=== PATIENT | male | born 1960 | race Caucasian/White ===

== ENCOUNTER 2018-12-13 07:32 | Emergency (ER) | payer MEDICARE, OTHER ==
[~2018-12-13] VITALS: Ht 180.3 cm; Wt 67.1 kg
[~2018-12-13 07:32] MED LIST: ALBU90OI INH; AZIT250 PO; CODGUAEL PO; CYCL10 PO; DOXY100 PO; HYDACE5 PO; IBUP200 PO; IBUP800 PO
[2018-12-13 08:35] LABS: BASOPHILS ABSOLUTE AUTO 0.03 K/mm3 (0.00-0.23); BASOPHILS PERCENT AUTO 0 % (0-2); EOSINOPHILS ABSOLUTE AUTO 0.06 K/mm3 (0.00-0.68); EOSINOPHILS PERCENT AUTO 0 % (0-6); Hematocrit 40.4 % (37.0-53.0); Hemoglobin 13.2 g/dL (13.5-17.5); IMMATURE GRAN ABSOLUTE AUTO 0.07 K/mm3 (0.00-0.10); IMMATURE GRAN PERCENT AUTO 1 % (0-1); LYMPHOCYTES ABSOLUTE AUTO 2.43 K/mm3 (0.84-5.20); LYMPHOCYTES PERCENT AUTO 17 % (21-46); MONOCYTES ABSOLUTE AUTO 0.94 K/mm3 (0.16-1.47); MONOCYTES PERCENT AUTO 6 % (4-13); Mean Corpuscular HGB 33.3 pg (26.0-34.0); Mean Corpuscular HGB Conc 32.7 g/dL (31.5-36.5); Mean Corpuscular Volume 102 fL (80-100); Mean Platelet Volume 10.3 fL (9.1-12.4); NEUTROPHILS ABSOLUTE AUTO 11.09 K/mm3 (1.96-9.15); NEUTROPHILS PERCENT AUTO 76 % (41-73); Platelet Count 288 K/mm3 (150-400); RDW Coefficient Variation 13.8 % (11.7-14.2); RDW Standard Deviation 50.6 fL (35.1-46.3); Red Blood Cell Count 3.96 M/mm3 (4.30-5.90); White Blood Cell Count 14.62 K/mm3 (4.00-11.30)
[2018-12-13 09:05] LABS: Alanine Aminotransfer (ALT/SGP 78 U/L (12-78); Albumin, Blood 3.3 g/dL (3.4-5.0); Albumin/Globulin Ratio 0.9 (0.8-1.8); Alk Phos 124 U/L (50-136); Anion Gap 10 mmol/L (6-16); Aspartate Aminotrans (AST/SGOT 49 U/L (12-37); Bilirubin, Total 0.7 mg/dL (0.1-1.0); Blood Urea Nitrogen 21 mg/dL (8-24); Bun/Creatinine Ratio 24.2 (12.0-20.0); CO2, Blood 23 mmol/L (21-32); Calcium, Blood 8.6 mg/dL (8.5-10.1); Chloride, Blood 107 mmol/L (98-108); Creatinine, Blood 0.87 mg/dL (0.60-1.20); Globulin, Blood 3.7 g/dL (2.2-4.0); Glomerular Filtration Rate >60 (60-); Glucose, Blood 128 mg/dL (70-99); Potassium, Blood 4.1 mmol/L (3.5-5.5); Sodium, Blood 140 mmol/L (136-145)
[2018-12-13 09:29] LABS: Base Excess Venous -3.1 mmol/L; Bicarbonate Venous 20.2 mmol/L (24.0-30.0); PCO2 Venous 52.7 mmHg (38-42); PO2 Venous 30.6 mmHg (38-42)
[2018-12-13 09:30] LABS: pH Blood Venous 7.27 (7.34-7.37)
[2018-12-13] MEDS ORDERED: PRED20 PO (10:33)
[2018-12-13] MEDS ORDERED: Lasix20 MG PO (10:34)
== END 2018-12-13 10:39 | disposition home or self-care (01) ==
LOC: ER 07:32
PROVIDERS: Emergency Medicine
DX: J44.1 Chronic obstructive pulmonary disease with (acute) exacerbation (principal); R09.02 Hypoxemia; I50.9 Heart failure, unspecified; Z79.899 Other long term (current) drug therapy; Z87.891 Personal history of nicotine dependence
CPT/HCPCS: 36415; 71046; 80053; 82803; 83880; 85025; 93005; 93010; 94640; 96361; 96365; 96375; 99284-25; J1940; J2930; J3475; J7030

== ENCOUNTER → 2019-01-02 | Outpatient (CLI) | payer MEDICARE, OTHER ==
[~2019-01-02] MED LIST changes: +Lasix20 MG PO; +PRED20 PO
[2019-01-02 19:47] LABS: Alanine Aminotransfer (ALT/SGP 20 U/L (12-78); Albumin, Blood 2.8 g/dL (3.4-5.0); Albumin/Globulin Ratio 0.6 (0.8-1.8); Alk Phos 103 U/L (50-136); Anion Gap 8 mmol/L (6-16); Aspartate Aminotrans (AST/SGOT 18 U/L (12-37); Bilirubin, Total 0.4 mg/dL (0.1-1.0); Blood Urea Nitrogen 18 mg/dL (8-24); Bun/Creatinine Ratio 18.5 (12.0-20.0); CO2, Blood 25 mmol/L (21-32); Calcium, Blood 8.6 mg/dL (8.5-10.1); Chloride, Blood 105 mmol/L (98-108); Creatinine, Blood 0.97 mg/dL (0.60-1.20); Globulin, Blood 4.5 g/dL (2.2-4.0); Glomerular Filtration Rate >60 (60-); Glucose, Blood 136 mg/dL (70-99); Sodium, Blood 138 mmol/L (136-145); Total Protein, Blood 7.3 g/dL (6.4-8.2)
== END | disposition home or self-care (01) ==
LOC: LAB 19:19 → LAB SHORT 19:19
PROVIDERS: Nurse Practitioner Family
DX: I50.9 Heart failure, unspecified (principal)
CPT/HCPCS: 80053; 83880

== ENCOUNTER 2019-02-17 08:37 | Inpatient (IN) | payer MEDICARE, OTHER ==
[~2019-02-17] VITALS: Ht 180.3 cm; Wt 71.1 kg
[2019-02-17 09:28] LABS: BASOPHILS ABSOLUTE AUTO 0.05 K/mm3 (0.00-0.23); BASOPHILS PERCENT AUTO 0 % (0-2); EOSINOPHILS ABSOLUTE AUTO 0.06 K/mm3 (0.00-0.68); EOSINOPHILS PERCENT AUTO 1 % (0-6); Hematocrit 47.3 % (37.0-53.0); Hemoglobin 15.7 g/dL (13.5-17.5); IMMATURE GRAN ABSOLUTE AUTO 0.03 K/mm3 (0.00-0.10); IMMATURE GRAN PERCENT AUTO 0 % (0-1); LYMPHOCYTES PERCENT AUTO 26 % (21-46); MONOCYTES ABSOLUTE AUTO 0.89 K/mm3 (0.16-1.47); MONOCYTES PERCENT AUTO 8 % (4-13); Mean Corpuscular HGB 32.1 pg (26.0-34.0); Mean Corpuscular HGB Conc 33.2 g/dL (31.5-36.5); Mean Corpuscular Volume 97 fL (80-100); NEUTROPHILS ABSOLUTE AUTO 7.55 K/mm3 (1.96-9.15); NEUTROPHILS PERCENT AUTO 65 % (41-73); Platelet Count 245 K/mm3 (150-400); RDW Coefficient Variation 15.1 % (11.7-14.2); RDW Standard Deviation 53.1 fL (35.1-46.3); Red Blood Cell Count 4.89 M/mm3 (4.30-5.90); White Blood Cell Count 11.58 K/mm3 (4.00-11.30)
[2019-02-17 09:53] LABS: Alanine Aminotransfer (ALT/SGP 94 U/L (12-78); Albumin, Blood 3.4 g/dL (3.4-5.0); Albumin/Globulin Ratio 0.7 (0.8-1.8); Alk Phos 150 U/L (50-136); Anion Gap 9 mmol/L (6-16); Aspartate Aminotrans (AST/SGOT 102 U/L (12-37); Bilirubin, Total 1.5 mg/dL (0.1-1.0); Blood Urea Nitrogen 19 mg/dL (8-24); Bun/Creatinine Ratio 19.3 (12.0-20.0); CO2, Blood 28 mmol/L (21-32); Chloride, Blood 95 mmol/L (98-108); Creatinine, Blood 0.99 mg/dL (0.60-1.20); Globulin, Blood 5.1 g/dL (2.2-4.0); Glomerular Filtration Rate >60 (60-); Glucose, Blood 122 mg/dL (70-99); Potassium, Blood 4.4 mmol/L (3.5-5.5); Sodium, Blood 132 mmol/L (136-145); Total Protein, Blood 8.5 g/dL (6.4-8.2); Troponin I 0.081 ng/mL (0.000-0.040)
[2019-02-17] MEDS ORDERED: ACET325 PO (11:28)
[2019-02-17] MEDS ORDERED: IBUPROFEN200 MG PO (11:30)
[2019-02-17] MEDS ORDERED: ALBU2.5V5 NEB (11:30)
[2019-02-17] MEDS ORDERED: ALBU90OI INH (11:31)
--- NOTE | 2019-02-17 11:57 | NUR ---
pt arrived to pcu 5 via gurney from the ED. report was obtained, pt able to stand and transfer to bed indep, but does get sob with exertion, a/ox3, pleasant and cooperative with care, follows commands well, denies any acute pain at this time, he replies nothing new, lungs are dim t/o, tight, a bit course in bases, resp even with mild laboring, sats are 99% on the 4 liters, turned him down to 2 for now, is on continuous biox, has a harsh occ productive cough, hrr, tele in place running sr per monitor, see strip, no edema noted, ppp+2, cap refill <3sec, vs stable, afebrile, iv site to trina is clear and patent, s.l. at this time, btx4, abd flat soft nontender, voids without diff, had a bm, skin c/w/d, has a scratch where his dog scratched him on his left fa. shara, up ad kerry in roomyousif, oriented to room layout and call system, call light in reach, echo being done at this time.
[2019-02-17 13:12] LABS: U Amphetamine Screen DETECTED; U Barbituate Screen Not Detected; U Benzodiazapine Screen Not Detected; U Buprenorphine Screen Not Detected; U Cannabinoids Screen Not Detected; U Cocaine Screen Not Detected; U Methadone Screen Not Detected; U Methamphetamine Screen Not Detected; U Opiates Screen Not Detected; U Oxycodone Screen Not Detected; U Phencyclidine Screen Not Detected; U Propoxyphene Screen Not Detected
[2019-02-17 17:13] LABS: PCO2 Arterial 34.6 mmHg (35-45); PO2 Arterial 95.1 mmHg (80-100); pH Blood Arterial 7.47 (7.35-7.45)
--- NOTE | 2019-02-17 18:16 | NUR ---
PT BECOMING MORE AGITATED, STATES HE HAS BEEN LIKE THIS FOR THREE DAYS, AND THINKS HE IS ALLERGIC TO ONE OF THE MEDICATIONS HE WAS STARTED ON THREE DAYS AGO, THESE NEW MEDS WERE NOT GIVEN HERE, CALL TO DR. SEXTON, RECIEVED NEW ORDERES, GAVE HIM ATIVAN, HE CALMED DOWN, AND IS DOZING. TELLS THIS NURSE THAT HE DRINKS BEER ALL DAY LONG WITH A TOTAL OF 1-3 32 OZ BEERS AT THE END OF THE DAY. SHE DIDN'T THINK HE WAS TAKING ANYTHING NOT ON HIS MEDICATION LIST,BUT WORKS NIGHTS AND DOESN'T KNOW WHEN SHE IS AT WORK. HE IS RESTING QUIETLY AT THIS TIME. CALL LIGHT IN REACH.
--- NOTE | 2019-02-17 19:49 | NUR ---
PM NOTE. ASSUMED CARE OF PT APROX 1900, PT IS A&Ox4 BUT SLEEPY DUE TO RECENT ATIVAN. PT WAS ADMITTED FOR COPD AND BRONCHITIS. PT IS CURRENTLY ON 1L NC AT 94%. TELE INTACT, NSR IN THE 90'S PER UNLOAD ASSOCIATE, PT'S BP 120/90. PT HAS NO EDEMA NOTED ON ASSESSMENT. L/S TIGHT AND DIM WITH COARSENESS IN THE BASES. BT PRESENT AND HYPOACTIVE ABD IS SOFT AND NONTENDER TO PALP. CALL LIGHT IN REACH, BED ALARM IS ON DUE TO MOMENTS OF CONFUSION PER REPORT FROM DAY VERNON AMEZQUITA. WILL CONTINUE TO MONITOR.
[2019-02-18 00:56] LABS: Adenovirus Not Detected (NOT DETECT); Bordetella pertussis Not Detected (NOT DETECT); Chlamydophila pneumoniae Not Detected (NOT DETECT); Coronavirus 229E Not Detected (NOT DETECT); Coronavirus HKU1 Not Detected (NOT DETECT); Coronavirus NL63 Not Detected (NOT DETECT); Coronavirus OC43 Not Detected (NOT DETECT); Human Metapneumovirus Not Detected (NOT DETECT); Human Rhinovirus/Enterovirus Not Detected (NOT DETECT); Influenza A Not Detected (NOT DETECT); Influenza A/2009-H1 Not Detected (NOT DETECT); Influenza A/H1 Not Detected (NOT DETECT); Influenza A/H3 Not Detected (NOT DETECT); Influenza B Not Detected (NOT DETECT); Mycoplasma pneumoniae Not Detected (NOT DETECT); Parainfluenza Virus 1 Not Detected (NOT DETECT); Parainfluenza Virus 2 Not Detected (NOT DETECT); Parainfluenza Virus 3 Not Detected (NOT DETECT); Parainfluenza Virus 4 Not Detected (NOT DETECT); Respiratory Syncytial Virus Not Detected (NOT DETECT)
[2019-02-18 01:32] LABS: BASOPHILS ABSOLUTE AUTO 0.06 K/mm3 (0.00-0.23); BASOPHILS PERCENT AUTO 0 % (0-2); EOSINOPHILS ABSOLUTE AUTO 0.05 K/mm3 (0.00-0.68); EOSINOPHILS PERCENT AUTO 0 % (0-6); Hematocrit 46.1 % (37.0-53.0); Hemoglobin 15.1 g/dL (13.5-17.5); IMMATURE GRAN ABSOLUTE AUTO 0.06 K/mm3 (0.00-0.10); IMMATURE GRAN PERCENT AUTO 0 % (0-1); LYMPHOCYTES PERCENT AUTO 28 % (21-46); MONOCYTES ABSOLUTE AUTO 1.27 K/mm3 (0.16-1.47); MONOCYTES PERCENT AUTO 9 % (4-13); Mean Corpuscular HGB 32.5 pg (26.0-34.0); Mean Corpuscular HGB Conc 32.8 g/dL (31.5-36.5); Mean Corpuscular Volume 99 fL (80-100); Mean Platelet Volume 11.2 fL (9.1-12.4); NEUTROPHILS ABSOLUTE AUTO 8.79 K/mm3 (1.96-9.15); NEUTROPHILS PERCENT AUTO 62 % (41-73); NRBC ABSOLUTE 0.02 K/mm3 (0.00-0.02); NRBC Auto 0.1 /100 WBC (0.0-0.2); Platelet Count 250 K/mm3 (150-400); RDW Coefficient Variation 15.3 % (11.7-14.2); RDW Standard Deviation 54.5 fL (35.1-46.3); Red Blood Cell Count 4.65 M/mm3 (4.30-5.90); White Blood Cell Count 14.13 K/mm3 (4.00-11.30)
[2019-02-18 01:48] LABS: PCO2 Arterial 23.8 mmHg (35-45); PO2 Arterial 138 mmHg (80-100); pH Blood Arterial 7.48 (7.35-7.45)
[2019-02-18 01:50] LABS: Albumin/Globulin Ratio 0.6 (0.8-1.8); Bilirubin, Total 1.3 mg/dL (0.1-1.0); Calcium, Blood 8.7 mg/dL (8.5-10.1); Creatinine, Blood 1.48 mg/dL (0.60-1.20); Globulin, Blood 4.7 g/dL (2.2-4.0); Potassium, Blood 4.9 mmol/L (3.5-5.5); Total Protein, Blood 7.7 g/dL (6.4-8.2)
--- NOTE | 2019-02-18 02:50 | NUR ---
PT UPDATE... AT 0010 PT FELL AFTER ATEMPTING TO WALK TO THE BATHROOM WITH OUT HELP. PT DID NOT USE HIS CALL LIGHT, BED ALARM WAS ON AT THE TIME. (SEE POST FALL DOCUMENTATION.) PT DID NOT HIT HIS HEAD. VS WERE STABLE POST FALL. PT WAS SHOWING INCREASED CONFUSION SINCE BEGINING SHIFT ASSESSMENT. PT WAS MAKING STATEMENTS LIKE "SEE THE [employer]ORSES, JUST THERE UP THE ROAD." PT'S SPEECH ALSO WOULD BECOME SLURRED/GARBALED AT TIMES. PT WAS ATTEMPTING TO VOID SEVERAL TIMES WITH NO RESULTS. BLADDER SCAN WAS DONE AND IT SHOWED >200MLS. MOTTLING WAS NOTED TO THE PT'S BLE THAT WAS NOT NOTED DURING FIRST ASSESSMENT. A PROPER O2 SAT WAS NOT OBTAINED DUE TO PT'S EXTREMITIES BEING MOTTLED AND COLD TO TOUCH. PT REFUSED WARM BLANKETS. MOTTLING INCREASED FROM THE PT'S BILATERAL FEET UP TO HIS KNEES THEN TO HIS THIGHS. MOTTLING WAS ALSO NOTED TO THE PT'S BUE AT THIS TIME. PROVIDER WAS CALLED AND NOTIFED, ORDERS TO TRANSFER TO ICU WERE OBTAINED. PT'S BELONGINGS WERE TAKEN WITH PT. PT'S FAMILY WAS NOTIFIED OF THE TRANSFER. REPORT WAS CALLED TO BARREL LINE OPERATOR TAKING PT.
--- NOTE | 2019-02-18 02:50 | NUR ---
PATIENT TRANSFERED TO ICU MD CONNOLLY TO ROOM TO ASSESS PATIENT. PATIENT TRANSFERED TO ICU 10.
[2019-02-18 03:16] LABS: Source, Urine Clean Catch
[2019-02-18 03:18] LABS: Bilirubin, Urine Neg (Neg); Blood, Urine 3+ (Neg); Glucose Qualitative, Urine Neg (Neg); Ketones, Urine Neg (Neg); Leukocyte Esterase, Urine Neg (Neg); Nitrite, Urine Neg (Neg); Protein, Urine 2+ (Neg); Urobilinogen, Urine 2+ (Normal)
--- NOTE | 2019-02-18 03:30 | NUR ---
RECEIVED PT AT 0253 FROM PCU. PT SLIDE TRANSFERRED TO BED. REPORT WAS RECEIVED FROM ALIRIO ORTIZ. ASSUMED CARE. PT NOTED TO BE SOMNULENT WHEN ARRIVING TO ROOM. PT AWAKENS AND IS QUITE CONFUSED. TRYING TO GET OUT OF BED. NEEDS TO BE REMINDED THAT HE HAS A CATHETER IN PLACE. ATTEMPTS TO PULL CATHETER OUT EVEN WHEN WARNED OF HARM HE COULD CAUSE. IS NOT AWARE OF WHERE HE IS. AGGRESSIVELY TRIES TO CLIMB OVER RAILINGS. BEBE VEST RESTRAINT APPLIED AND ALSO NEEDED TO PLACE SOFT WRIST RESTRAINTS TO KEEP PT FROM HARMING HIMSELF. NOTED TO BE VERY IMPULSIVE. TEACHING DONE WITH PT ON RATIONALE FOR RESTRAINTS AND FOR COMING TO ICU. PT DOES NOT DEMONSTRATE ANY COMPREHENSION TO TEACHING. WILL CONTINUE TO MONITOR PT, AND WILL REVIEW CHART.
[2019-02-18 03:31] LABS: Appearance, Urine Clear (Clear); Color, Urine Yellow (P-Yellow); U Amphetamine Screen Not Detected; U Barbituate Screen Not Detected; U Benzodiazapine Screen DETECTED; U Buprenorphine Screen Not Detected; U Cannabinoids Screen Not Detected; U Cocaine Screen Not Detected; U Methadone Screen Not Detected; U Methamphetamine Screen Not Detected; U Opiates Screen Not Detected; U Oxycodone Screen Not Detected; U Phencyclidine Screen Not Detected; U Propoxyphene Screen Not Detected
[2019-02-18 03:32] LABS: Amorphous Light (0-Heavy); Bacteria Not Seen /hpf; Red Blood Cells, Urine 0-2 /hpf (0-2); Squamous Epithelial Cells Not Seen /hpf (Few); White Blood Cells, Urine Not Seen /hpf (0-5)
--- NOTE | 2019-02-18 05:11 | NUR ---
PT MEDICATED AGAIN WITH ATIVAN 1 MG FOR INCREASING AGITATION AND PULLING EXCESSIVELY HARD AT RESTRAINTS. ALSO TRYING TO GET AHOLD OF HIS CATHETER. PT DOES FALL ASLEEP, AND THEN AWAKENS TO RETURN TO TRYING TO GET OUT OF BED AND PULL AT RESTRAINTS AND LINES. PT CONTINUES ON 3 L/M O2 WITH SATURATION OF 100 PERCENT. DID DECREASE FLOW TO 2 L/M PER NASAL CANNULA. HAVE NEEDED TO DO SPOT CHECKS OF SATURATIONS SECONDARY TO PT NOT HOLDING STILL ENOUGH TO HAVE ACCURATE SATURATION READINGS. HAS OCCASSION SOMEWHAT MOIST COUGH WITHOUT BEING ABLE TO EXPECTORATE. WILL CONTINUE TO MONITOR.
--- NOTE | 2019-02-18 06:30 | NUR ---
HAVE CALLED DR CONNOLLY CONCERNING PT'S WORSENING CIWA SCORING. ORDERS RECEIVED TO INCREASE ATIVAN DOSAGE AND FREQUENCY. HAVE ADMINISTERED 2 MG ATIVAN. PT CONTINUES TO BE INCREASINGLY MORE RESTLESS AND AGITATED. PULLS AGGRESSIVELY AGAINST RESTRATINS. WILL CONTINUE TO MONITOR PT. WILL REPORT OFF TO ONCOMING RN. PT'S CALLS THIS AM, UPDATE GIVEN. PT'S STATES THAT PT DRINKS 1-2 "HURRICANES" IN MORNING AND 2-3 AT NIGHT ON A DAILY BASIS. SHE ALSO CLAIMS THAT PT HAS HAD HALLUCINATIONS AND CONFUSION BEFORE WHEN HE RECEIVED LASIX AND CLEARED UP WHEN IT WAS STOPPED. SHE SAYS THAT BECAUSE PT HAD A DOSE OF LASIX YESTERDAY, THAT IS WHY HE IS CONFUSED AND AGITATED.
--- NOTE | 2019-02-18 17:48 | NUR ---
SHIFT SUMMARY: NO ACUTE DISTRESS NOTED T/O THE DAY. PT WAS PLACED ON PRECEDIX THIS MORNING D/T EXTREAM AGITATION AND PULLING ON RESTRAINTS. AFTER PT WAS ON PRECEDIX FOR A FEW HOURS ALL RESTRAINTS HAD BEEN REMOVED EXCEPT THE VEST. FAMILY AND WERE HEAR IN THE MORNING ASKING NUMEROUS QUESTIONS REGUARDING PT CONDITION. FAMILY UPDATED AND EDUCATED ON PT CURRENT CONDITION. WAS VERY INSISTANT THAT THE PT IS NOT GOING THROUGH ETOH WITHDRAWALS. THIS RN EDUCATED ON THE S/S ETOH WITHDRAWALS AND WENT THROUGH PT LABS AND MEDICATIONS WITH HER IN ATEMPTS TO ASSIST HER IN UNDERSTANDING CURRENT PLAN OF CARE IS APPROPRIATE. VSS T/O THE DAY. PT HAS BEEN SLEEPING AND QUIET MOST OF THE DAY SINCE PRECEDIX WAS STARTED. CIWA HAS BEEN BETWEEN APPROX BETWEEN 9-20 WITH AN AVERAGE OF 14 WHEN MEDICATED. WILL CONTINUE TO MONITOR AND REPORT TO NOC RN.
--- NOTE | 2019-02-18 20:28 | NUR ---
ASSUMED CARE OF PT AT 1900. REPORT RECEIVED AT BEDSIDE. PRECEDEX DRIP REVIEWED AND VERIFIED WITH OFFGOING RN. PT'S IN ROOM. ASKS QUESTIONS AND TEACHING OF PLAN OF CARE REVIEWED WITH . PT NOTED TO HAVE A SLEEP-APNEIC TYPE RESPIRATORY PATTERN. STATES PT HAS HAD TWO AT HOME SLEEP STUDIES WHICH WERE NOT DEFINITIVE FOR SLEEP APNEA. SHE STATES THAT PT WOULD ONLY SLEEP FOR A VERY SHORT PERIOD.
--- NOTE | 2019-02-19 | NUR ---
PT CONTINUES ON PRECEDEX AT 0.4 MCG'S/KG/HOUR. FOR THE MOST PART, PT IS ABLE TO REST. PT'S HAS GONE HOME FOR THE NIGHT. OF NOTE: WHEN PT AWAKENS, HE BECOMES VERY AGITATED, AND TRIES TO GET OUT OF BED. PULLS ON CATHETER, AND TRIES TO TAKE HIS LINES, BLOOD PRESSURE CUFF, AND OXYGEN OFF. HAVE MEDICATED PT WITH 2 MG ATIVAN WITH GOOD RESULTS. PT CURRENTLY RESTING IN BED. BLOOD PRESSURES HAVE BEEN SOMEWHAT HYPOTENSIVE WITH SEDATION.
--- NOTE | 2019-02-19 02:53 | NUR ---
HAVE DECREASED PRECEDEX TO 0.3MCG'S PER KG/HR. PT HAD BEEN MEDICATED AGAIN WITH 2 MG ATIVAN FOR AWAKENING AND BECOMING AGITATED WHEREAS HE WAS TRYING TO GET OUT OF BED. PT STATED HE WAS IN [place] AND WAS NOT AWARE HE WAS IN A HOSPITAL. PT SLEEPING AT THIS TIME. BLOOD PRESSURES TREND LOWER AFTER ATIVAN DOSING SO HAVE BROUGHT PRECEDEX DOWN TO 0.3 TO SEE IF THIS HELPS WITH HIS BLOOD PRESSURES.
[2019-02-19 04:12] LABS: BASOPHILS ABSOLUTE AUTO 0.02 K/mm3 (0.00-0.23); BASOPHILS PERCENT AUTO 0 % (0-2); EOSINOPHILS PERCENT AUTO 0 % (0-6); Hematocrit 43.3 % (37.0-53.0); Hemoglobin 14.9 g/dL (13.5-17.5); IMMATURE GRAN ABSOLUTE AUTO 0.06 K/mm3 (0.00-0.10); IMMATURE GRAN PERCENT AUTO 1 % (0-1); LYMPHOCYTES PERCENT AUTO 12 % (21-46); MONOCYTES ABSOLUTE AUTO 0.22 K/mm3 (0.16-1.47); MONOCYTES PERCENT AUTO 2 % (4-13); Mean Corpuscular HGB 32.8 pg (26.0-34.0); Mean Corpuscular HGB Conc 34.4 g/dL (31.5-36.5); NEUTROPHILS ABSOLUTE AUTO 10.99 K/mm3 (1.96-9.15); NEUTROPHILS PERCENT AUTO 86 % (41-73); Platelet Count 246 K/mm3 (150-400); RDW Coefficient Variation 14.8 % (11.7-14.2); RDW Standard Deviation 50.8 fL (35.1-46.3); Red Blood Cell Count 4.54 M/mm3 (4.30-5.90); White Blood Cell Count 12.79 K/mm3 (4.00-11.30)
[2019-02-19 04:14] LABS: Mean Corpuscular Volume 95 fL (80-100)
[2019-02-19 04:33] LABS: Alanine Aminotransfer (ALT/SGP 90 U/L (12-78); Albumin, Blood 2.1 g/dL (3.4-5.0); Albumin/Globulin Ratio 0.6 (0.8-1.8); Alk Phos 111 U/L (50-136); Anion Gap 10 mmol/L (6-16); Aspartate Aminotrans (AST/SGOT 88 U/L (12-37); Bilirubin, Total 0.9 mg/dL (0.1-1.0); Blood Urea Nitrogen 30 mg/dL (8-24); Bun/Creatinine Ratio 26.8 (12.0-20.0); CO2, Blood 25 mmol/L (21-32); Calcium, Blood 7.6 mg/dL (8.5-10.1); Chloride, Blood 99 mmol/L (98-108); Creatinine, Blood 1.12 mg/dL (0.60-1.20); Globulin, Blood 3.8 g/dL (2.2-4.0); Glomerular Filtration Rate >60 (60-); Glucose, Blood 167 mg/dL (70-99); Magnesium, Blood 2.1 mg/dL (1.6-2.4); Phosphorus, Blood 4.4 mg/dL (2.5-4.9); Potassium, Blood 4.2 mmol/L (3.5-5.5); Sodium, Blood 134 mmol/L (136-145); Total Protein, Blood 5.9 g/dL (6.4-8.2)
--- NOTE | 2019-02-19 04:54 | NUR ---
HAVE MEDICATED PT WITH 1 MG ATIVAN FOR INCREASING AGITATION. HAVE CHOSE TO DO 1 MG VERSUS 2MG TO SEE IF PT RESPONDS TO DECREASED DOSING. PT AT THIS POINT IS SLEEPING. SEE CIWA SCORING DETAILS FOR ASSESSMENT.
--- NOTE | 2019-02-19 06:40 | NUR ---
PT'S CALLS THIS AM TO CHECK ON PT. UPDATE GIVEN. PT HAS JUST AWOKE AND IS PULLING OFF HIS OXYGEN AND BLOOD PRESSURE CUFF. WILL EVALUATE NEED FOR ADDITIONAL DOSE OF ATIVAN OR IF PT IS REDIRECTABLE. PT HAS CONTINUED ON 3 MCG'S/KG/HOUR PRECEDEX. PT HAS SLEPT OFF AND ON THROUGH THE NIGHT. WILL CONTINUE TO MONITOR PT, AND WILL REPORT OFF TO ONCOMING RN.
--- NOTE | 2019-02-19 07:07 | NUR ---
ASSUMED CARE: RECEIVED REPORT FROM NOC RN. UPON ENTERING THE ROOM PT APPEARS TO BE SLEEPING NOTED BY HIS EYES CLOSED, EVEN CHEST RISE AND FALL NOTED. PRECEDEX IS NOTED TO BE AT 0.3 MCG/KG/HR. VSS AT THIS TIME, NO ACUTE DISTRESS NOTED. WILL CONTINUE TO MONITOR AND ASSESS FURTHER.
--- NOTE | 2019-02-19 09:04 | NUR ---
CALM AND COOPERATIVE: PT AWAKES WHILE IN THE ROOM ASSESSING HIM. APPEARS CONFUSED TO WHERE HE IS, BUT STATES [place] FOR THE STATE. STATES 1919 FOR THE YEAR AND FEBRUARY FOR THE MONTH. PT APPEARS DROUSY, BUT IS FOLLOWING COMMANDS AND IS ATTEMPTING TO GET OUT OF BED OF YET. PT IS EDUCATED TO BEING IN THE HOSPITAL AND STATES HE IS ONLY GOING TO BE HERE ONE MORE DAY. PT BEGINS TO START PULLING AT BLOOD PRESSURE CUFF BUT IS REDIRECTED. RN LEAVES ROOM TO GET WATER AND PT AGRESS NOT TO BE PULLING AT LINES AND CORDS OR GET OUT OF BED, UPON RETURNING PT HAD NOT ATTEMPTED ANY OF THE ABOVE. PT IS ABLE TO SIP ON WATER WITH NO S/S OF ASPIRATION, LIBRIUM GIVEN PO. AFTER EATING A YOGURT AND DRINKING A SMALL WATER PT FALLS BACK TO SLEEP. WILL CONTINUE TO MONITOR AND ASSESS FURTHER. PT IS ABLE TO PARTICIPATE IN CIWA TO GET A MORE ACCURATE SCORE.
--- NOTE | 2019-02-19 13:30 | NUR ---
DAUGHTER AT BEDSIDE: PT IS NOTED TO BE AWAKE, DAUGHTER IS IN ROOM AT THIS TIME. CURRENTLY PT IS CALM AND COOPERATIVE, IS ABLE TO STATE HOSPITAL WHICH HIS DAUGHTER TOLD HIM. PROVIDED A FOOD TRAY WHICH HE REFUSED, BUT REQUESTED CEREAL AND ICECREAM. PT ATE THE CEREAL WITH MILK, ICE CREAM AND FRUIT THAT WAS LEFT IN THE ROOM. PT APPEARS TO BE DROUSY AND REQUESTS TO LAY BACK AFTER HE IS FINISHED EATING AND APPEARS TO GO BACK TO SLEEP. WILL CONTINUE TO MONITOR.
--- NOTE | 2019-02-19 14:46 | NUR ---
PRECEDEX OFF: TITRATED PRECEDEX OFF AT THIS TIME TO SEE HOW PT TOLLERATES. PT HAS APPEARED TO SLEEP T/O THE DAY WITH BEBE VEST ON WAKING OCCATIONALY. PT HAS BEEN CALM AND COOPERATIVE WHEN AWAKE. WILL CONTINUE TO MONITOR AND ASSESS FOR NEED OF VEST AND PRECEDEX.
--- NOTE | 2019-02-19 18:13 | NUR ---
SHIFT SUMMARY: NO ACUTE CHANGES NOTED T/O THE SHIFT. PT REMAINED CALM AND COOPERATIVE T/O THE SHIFT, BUT REMAINED CONFUSED NEEDING TO BE REORIENTED TO PLACE AND SITUATION. PT WILL REPEAT BACK THE THINGS YOU SAY SO IT CAN BE DIFFICULT TO DETERMINE CONFUSION STATUS. PT STATED [employer] P[employer] THE PLACE AND 1919 THE YEAR AND [place]VANO THE PRESEDENT. PT HAS BEEN SITTING UP EATING AND DRINKING WITH OUT DIFFICULTY. VSS T/O THE DAY. PRECEDEX WAS TURNED OFF AT APPROX 1430 AND PT HAS BEEN SLEEPING OR AWAKE FOR SHORT PERIODS OF TIME. WILL CONTINUE TO MONITOR AND REPORT TO NOC RN. IS IN THE ROOM AND CALL LIGHT AT BEDSIDE.
--- NOTE | 2019-02-19 19:47 | NUR ---
ASSUMED CARE RECEIVED REPORT FROM CANDICE; PT IS CALM AND ALERT&ORIENTEDX2 (PERSON AND PLACE; STATED THE PRESIDENT WAS DEVI INITIALLY). PT IS ON 2LNC. CURRENT GTTP: BANNANA BAG 75ML/HR, AND NS TKO. BRAN HANGING TO GRAVITY. JUST LEFT BEDSIDE.
--- NOTE | 2019-02-19 21:44 | NUR ---
UPDATE PT AWAKE (ASLEEP SINCE 1930); CIWA OF 4. NO APPARENT DISTRESS; NO COMPLAINTS.
[2019-02-20 04:09] LABS: BASOPHILS ABSOLUTE AUTO 0.03 K/mm3 (0.00-0.23); BASOPHILS PERCENT AUTO 0 % (0-2); EOSINOPHILS PERCENT AUTO 0 % (0-6); Hematocrit 40.3 % (37.0-53.0); Hemoglobin 13.7 g/dL (13.5-17.5); IMMATURE GRAN ABSOLUTE AUTO 0.15 K/mm3 (0.00-0.10); IMMATURE GRAN PERCENT AUTO 1 % (0-1); LYMPHOCYTES ABSOLUTE AUTO 1.45 K/mm3 (0.84-5.20); LYMPHOCYTES PERCENT AUTO 7 % (21-46); MONOCYTES ABSOLUTE AUTO 0.74 K/mm3 (0.16-1.47); MONOCYTES PERCENT AUTO 4 % (4-13); Mean Corpuscular HGB 33.2 pg (26.0-34.0); Mean Platelet Volume 10.7 fL (9.1-12.4); NEUTROPHILS ABSOLUTE AUTO 18.84 K/mm3 (1.96-9.15); NEUTROPHILS PERCENT AUTO 89 % (41-73); Platelet Count 249 K/mm3 (150-400); RDW Standard Deviation 53.1 fL (35.1-46.3); Red Blood Cell Count 4.13 M/mm3 (4.30-5.90); White Blood Cell Count 21.21 K/mm3 (4.00-11.30)
[2019-02-20 04:11] LABS: Mean Corpuscular Volume 98 fL (80-100)
[2019-02-20 04:28] LABS: Alanine Aminotransfer (ALT/SGP 90 U/L (12-78); Albumin, Blood 2.4 g/dL (3.4-5.0); Albumin/Globulin Ratio 0.6 (0.8-1.8); Alk Phos 106 U/L (50-136); Anion Gap 8 mmol/L (6-16); Aspartate Aminotrans (AST/SGOT 63 U/L (12-37); Bilirubin, Total 0.6 mg/dL (0.1-1.0); Blood Urea Nitrogen 30 mg/dL (8-24); Bun/Creatinine Ratio 25.6 (12.0-20.0); CO2, Blood 26 mmol/L (21-32); Chloride, Blood 101 mmol/L (98-108); Creatinine, Blood 1.17 mg/dL (0.60-1.20); Globulin, Blood 3.9 g/dL (2.2-4.0); Glomerular Filtration Rate >60 (60-); Glucose, Blood 143 mg/dL (70-99); Magnesium, Blood 2.3 mg/dL (1.6-2.4); Phosphorus, Blood 2.8 mg/dL (2.5-4.9); Potassium, Blood 4.6 mmol/L (3.5-5.5); Sodium, Blood 135 mmol/L (136-145); Total Protein, Blood 6.3 g/dL (6.4-8.2)
--- NOTE | 2019-02-20 06:47 | NUR ---
SHIFT SUMMARY PT SLEPT MAJORITY OF NIGHT; AND WHEN AWAKE WAS VERY SLEEPY AND STRUGGLED TO STAY AWAKE. CIWA AT START OF SHIFT WAS 4 (2142), 2 @ 0028, AND 6 @ 0456. HE IS ALERT AND ORIENTED TO SELF, , PLACE, BUT NOT TIME - STATED THE PRESIDENT WAS DEVI AT START OF SHIFT, AND JAJA SCHAEFER AT END OF SHIFT (THE RARE TIMES HE WAS AWAKE AND COMMUNICATING WITH ME). NO ATIVAN OR LIBRIUM INDICATED. HE IS ON 2L NC, BUT COULD PROBABLY BE WEANED OFF - I WILL WALK IN TO ROOM AND IT WILL NOT BE ON CORRECTLY AND HE WILL BE SAT'ING MID 90'S. CLEAR THROUGHOUT LUNGS AND DIMINISHED IN BASES. PT HAS BEEN HAVING SOFT, BUT STABLE BLOOD PRESSURES, SEE VS. HE IS IN NSR WITH A BBB, AND OCCASIONAL PVC'S. PT HAS NOT NEEDED RESTRAINTS OR PRECEDEX ALL SHIFT. NO VISITORS THROUGHOUT NIGHT, LEFT PT WITH CALL LIGHT IN REACH, BED LOW AND LOCKED.
--- NOTE | 2019-02-20 09:57 | NUR ---
AM NOTE. ASSUMED CARE OF PT APROX 0700, PT IS A&Ox3, PT WAS UNABLE TO STATE THE DATE, BUT KNEW HIS LOCATION, CITY, AND WHO THE PRESIDENT WAS. PT WAS ADMITTED FOR COPD/BROCHITIS AND BEGAN ETOH W/D. PT IS NO LONGER IN RESTRAINS, HE IS CALM AND COOPERATIVE, PT IS NOT TRYING TO GET OUT OF BED, PULL ON ANY LINES/TUBES AT THIS TIME. NO W/D SYMPTOMS NOTED AT THIS TIME. PT DENIES ANY N/V, SHAKES OR ANXIOUSNESS/AGITATION. MANPOWER DEVELOPMENT SPECIALIST IN THE ROOM THIS AM, STATED THAT HE WANTED THE PT TO FOLLOW UP OUTPATIENT AFTER HIS D/C. MONITORS INTACT, NSR IN THE 710'S, PT'S BP 97/66. NO EDEMA NOTED ON ASSESSMENT. L/S CLEAR T/O AND DIM IN THE BASES, PT IS ON RA AT 97% WITH 2 L NC PRN. RR IS 17, EVEN AND UNLABORED. BT PRESENT AND HYPOACITIVE, ABD IS SOFT AND NONTENDER TO PALP. PT ATE ALL OF HIS BREAKFAST IND. CALL LIGHT IN REACH, BED IS LOCKED AND LOW WILL CONTINUE TO MONITOR.
[2019-02-20 12:24] LABS: BASOPHILS ABSOLUTE AUTO 0.04 K/mm3 (0.00-0.23); BASOPHILS PERCENT AUTO 0 % (0-2); EOSINOPHILS PERCENT AUTO 0 % (0-6); Hematocrit 42.2 % (37.0-53.0); Hemoglobin 13.9 g/dL (13.5-17.5); IMMATURE GRAN ABSOLUTE AUTO 0.22 K/mm3 (0.00-0.10); IMMATURE GRAN PERCENT AUTO 1 % (0-1); LYMPHOCYTES ABSOLUTE AUTO 1.19 K/mm3 (0.84-5.20); LYMPHOCYTES PERCENT AUTO 5 % (21-46); MONOCYTES ABSOLUTE AUTO 0.92 K/mm3 (0.16-1.47); MONOCYTES PERCENT AUTO 4 % (4-13); Mean Corpuscular HGB 33.2 pg (26.0-34.0); Mean Corpuscular HGB Conc 32.9 g/dL (31.5-36.5); Mean Platelet Volume 10.8 fL (9.1-12.4); NEUTROPHILS ABSOLUTE AUTO 24.06 K/mm3 (1.96-9.15); NEUTROPHILS PERCENT AUTO 91 % (41-73); Platelet Count 251 K/mm3 (150-400); RDW Coefficient Variation 15.6 % (11.7-14.2); RDW Standard Deviation 55.8 fL (35.1-46.3); Red Blood Cell Count 4.19 M/mm3 (4.30-5.90); White Blood Cell Count 26.43 K/mm3 (4.00-11.30)
[2019-02-20 12:28] LABS: Mean Corpuscular Volume 101 fL (80-100)
[2019-02-20 13:33] LABS: Source, Urine Catheter
--- NOTE | 2019-02-20 13:40 | NUR ---
PT UPDATE... PROVIDER IN THE ROOM TO SPEAK TO PT AND . PROVIDER WAS CONCERED ABOUT THE PT'S INCREASED WBC COUNT. ORDERS TO D/C BRAN AND SEND UA OBTAINED. BRAN WAS D/C'D WNL AND SPECIMEN WAS SENT. PROVIDER ENTERED NEW ORDERS FOR IV ANTIBIOTICS. PT KEEPS ASKING TO GO HOME AND MAKING STATEMENTS LIKE "I AM JUST GOING TO WALK OUT OF HERE." AND "I AM FEELING JUST FINE, I DON'T NEED TO BE HERE ANY MORE." PT'S ANXIETY AND AGITATION LEVEL HAVE INCREASED FROM EARLIER TODAY, PT WAS MEDICATED PER EMAR/CWIA PROTOCOL. CALL LIGHT IN REACH, BED ALARM ON, WILL CONTINUE TO MONITOR.
[2019-02-20 14:14] LABS: Bilirubin, Urine Neg (Neg); Blood, Urine 1+ (Neg); Glucose Qualitative, Urine Neg (Neg); Ketones, Urine Neg (Neg); Leukocyte Esterase, Urine 2+ (Neg); Nitrite, Urine Neg (Neg); Protein, Urine 1+ (Neg); Specific Gravity, Urine 1.015 (1.003-1.022); Urobilinogen, Urine 1+ (Normal)
[2019-02-20 14:31] LABS: Appearance, Urine Clear (Clear); Color, Urine Yellow (P-Yellow)
[2019-02-20 14:32] LABS: Bacteria Few /hpf; Squamous Epithelial Cells Not Seen /hpf (Few)
--- NOTE | 2019-02-20 18:07 | NUR ---
SHIFT SUMMARY. PT HAS BEEN AGITATED OFF AND ON T/O THIS SHIFT DUE TO THE FACT HE CANNOT GO HOME RIGHT NOW. PT KEEPS STATING THAT "I AM JUST GOING TO LEAVE." PT IS NOT HAVING ANY SHAKES/TREMORS OR HALLUCINATIONS AT THIS TIME. PT HAS PULLED 1 IV THIS SHIFT AFTER STATING HE WAS GOING TO LEAVE. PT EXHIBITS GENERALIZED WEAKNESS FROM BEDREST. PT IS ABLE TO REPOSITION HIMSELF IN THE BED PRN. PT HAS VOIDED 350MLS AFTER BRAN WAS D/C'D. PT DENIES ANY BURNING OR PAIN DURING URINATION. CALL LIGHT IN REACH, BED IS LOCKED AND LOW WILL CONTINUE TO MONITOR UNTIL REPORT IS GIVEN TO ONCOMING RN.
--- NOTE | 2019-02-20 23:13 | NUR ---
CARE ASSUMPTION / UPDATE PT A&O TO SELF, SURROUNDINGS, & EVENT, UNABLE TO STATE DATE. PT RESTLESS IN BED, PULLING AT MONITOR LINES, IV, AND REMOVING GOWN. BILAT SWR IN PLACE AFTER REMOVING PIV AT CHANGE OF SHIFT. NEW IV STARTED W/ RESUMPTION OF IV MEDICATION. PT NOT FOLLOWING INSTRUCTIONS, CONTINUES TO MANUEVER OUT OF BSWR, PULLING AT AND REMOVING LINES. PRN ATIVAN GIVEN PER EMAR W/OUT PT RESPONSE. PRECEDEX RESTARTED PER ORDERS. VSS. WILL CONTINUE TO MONITOR AND PROVIDE CARE.
--- NOTE | 2019-02-21 01:33 | NUR ---
PT CONTINUES TO BE RESTLESS AND COMING OUT OF BSWR AND REMOVING LINES. PT PLACED IN NONVIOLENT BILAT TOUGH CUFFS. PRECEDEX GTT INFUSING PER EMAR.
[2019-02-21 03:43] LABS: BASOPHILS ABSOLUTE AUTO 0.03 K/mm3 (0.00-0.23); BASOPHILS PERCENT AUTO 0 % (0-2); EOSINOPHILS PERCENT AUTO 0 % (0-6); Hematocrit 42.2 % (37.0-53.0); Hemoglobin 13.5 g/dL (13.5-17.5); IMMATURE GRAN ABSOLUTE AUTO 0.17 K/mm3 (0.00-0.10); IMMATURE GRAN PERCENT AUTO 1 % (0-1); LYMPHOCYTES ABSOLUTE AUTO 1.13 K/mm3 (0.84-5.20); LYMPHOCYTES PERCENT AUTO 5 % (21-46); MONOCYTES ABSOLUTE AUTO 0.68 K/mm3 (0.16-1.47); MONOCYTES PERCENT AUTO 3 % (4-13); Mean Corpuscular HGB 33.1 pg (26.0-34.0); Mean Corpuscular Volume 103 fL (80-100); Mean Platelet Volume 10.9 fL (9.1-12.4); NEUTROPHILS ABSOLUTE AUTO 22.99 K/mm3 (1.96-9.15); NEUTROPHILS PERCENT AUTO 92 % (41-73); Platelet Count 235 K/mm3 (150-400); RDW Standard Deviation 58.7 fL (35.1-46.3); Red Blood Cell Count 4.08 M/mm3 (4.30-5.90)
[2019-02-21 04:00] LABS: Alanine Aminotransfer (ALT/SGP 96 U/L (12-78); Albumin, Blood 2.7 g/dL (3.4-5.0); Albumin/Globulin Ratio 0.6 (0.8-1.8); Alk Phos 120 U/L (50-136); Anion Gap 5 mmol/L (6-16); Aspartate Aminotrans (AST/SGOT 70 U/L (12-37); BAND PERCENT MAN 3 % (0-8); BASOPHILS PERCENT MAN 0 % (0-2); Bilirubin, Total 0.3 mg/dL (0.1-1.0); Blood Urea Nitrogen 30 mg/dL (8-24); CO2, Blood 29 mmol/L (21-32); Calcium, Blood 8.3 mg/dL (8.5-10.1); Chloride, Blood 103 mmol/L (98-108); Creatinine, Blood 1.25 mg/dL (0.60-1.20); EOSINOPHILS PERCENT MAN 0 % (0-6); Globulin, Blood 4.2 g/dL (2.2-4.0); Glomerular Filtration Rate >60 (60-); Glucose, Blood 153 mg/dL (70-99); LYMPHOCYTES ABSOLUTE MAN 0.75 K/mm3 (0.84-5.20); LYMPHOCYTES PERCENT MAN 3 % (21-46); MONOCYTES PERCENT MAN 2 % (4-13); Magnesium, Blood 2.4 mg/dL (1.6-2.4); NEUTROPHILS ABSOLUTE MAN 23.75 K/mm3 (1.96-9.15); Phosphorus, Blood 2.3 mg/dL (2.5-4.9); Potassium, Blood 4.6 mmol/L (3.5-5.5); SEG NEUTROPHILS PERCENT MAN 92 % (41-73); Sodium, Blood 137 mmol/L (136-145); TOTAL CELLS COUNTED 100; Total Protein, Blood 6.9 g/dL (6.4-8.2)
--- NOTE | 2019-02-21 06:28 | NUR ---
SHIFT SUMMARY PT A&O TO SELF, EVENT, AND LOCATION. PT UNAWARE OF DATE & TIME. PT PLEASANT & FORGETFUL, APOLOGIZING FOR REMOVING SBWR AND PULLING AT/REMOVING LINES. PT PLACED IN BILAT UPPER EXTREMETY NONVIOLENT TOUGH CUFFS D/T ABILITY TO CONTINUOUSLY REMOVE BSWR AND REMOVE LINES. PT/RESTRAINTS MANAGED AND CARED FOR T/O SHIFT. PT RESTLESS T/O MAJORITY OF SHIFT ON PRECEDEX GTT UNTIL PT BRADYCARDIC AND HYPOTENSIVE, GTT PLACED ON STANDBY, SEE VS. PT IN BED W/ BILAT UPPER EXT RESTRAINTS IN PLACE. CALL LIGHT IN REACH. BED ALARM ON. WILL CONTINUE TO MONITOR AND PROVIDE CARE UNTIL REPORT OFF TO DAY SHIFT RN.
--- NOTE | 2019-02-21 09:45 | NUR ---
PT IS RESTLESS AND MOVING ABOUT PULLING ON LINES AND RESTRAINTS. PT MOANING AND FEW WORDS UNDERSTOOD BUT HE IS ALSO UNABLE TO FULLY COOPERATE WITH RESPOND WITH HIS ENVIRONMENT. ISTRATE IN AND OBSERVED PT STATUS.
--- NOTE | 2019-02-21 11:53 | NUR ---
LACTIC ACID RESULTS OBTAINED, DR CALLED, NEW ORDERS AND FLUIDS STARTED AND RATE ADJUSTED TO 450ML PER ISTRATE DUE TO E.F. FINDINGS. PT REMIANS CALM/RESTLESS AND VS NOTED. PT REMAINS STABLE.
[2019-02-21 14:34] LABS: Vancomycin, Trough 16.7 ug/mL (5.0-10.0)
--- NOTE | 2019-02-21 16:14 | NUR ---
PT REMAINING RESTLESS AND RESTRAINED BUT MANNAGABLE. VS AND SATS NOTED.
--- NOTE | 2019-02-21 17:27 | NUR ---
PT HAS CONT PERIODS OF CALM WITH RESTLESSNESS AND NOT FOLLOWING COMMANDS BUT HAS NOT BECOME COMBATIVE EITHER. PT HAS HAD LESS APNIC PERIODS THIS AFTERNOON AND KNEE MOTTLING HAS IMPROVED SL BUT REMAINS VISABLE. BANANNA BAG IS AT 75ML AND NS AT TKO. ATTENDS REMAINS ON AND DRY.
--- NOTE | 2019-02-21 20:06 | NUR ---
ASSUMED CARE OF PT AT 1915. REPORT RECEIVED AT BEDSIDE. PT PRESENTS IN BED SOMEWHAT AGITATED. PULLING ON RESTRAINTS. PT NOTED TO HAVE MOTTLING ON HIS THIGHS AND DARK MOTTLING ON HIS KNEES BI LAT. DISCUSSING THIS WITH PT'S SHE STATES THAT PT HAS HAD ONGOING ISSUES WITH MOTTLING ON LEGS AT THIGHS EVEN BEFORE COMING TO THE HOSPITAL. HAS STATED THAT PT HAS AN ORAL ABSCESS AT LOWER LEFT MOLAR AREA THAT HAS FLAIRED UP AT TIMES. HAS BEEN TO DENTIST TO HAVE RESOLVED BUT HAS NOT BEEN ABLE TO COMPLETE SECONDARY TO FINANCIAL ISSUES. HAS GONE HOME FOR THE NIGHT. DR JOSEPH COMES BY UNIT TO REQUEST UPDATE ON PT'S CONDITION RELATED TO TODAY'S INTERVENTIONS. NO NEW ORDERS RECEIVED. PT ABLE ANSWER QUESTIONS THOUGH THE RELIABILITY OF RESPONSES ARE QUESTIONABLE. WILL REVIEW CHART AND PLAN OF CARE FOR THIS PT.
--- NOTE | 2019-02-21 23:00 | NUR ---
PT'S GOES HOME FOR THE NIGHT. SHE REQUESTS THAT PT GETS "SOMETHING TO HELP HIM SLEEP" SECONDARY TO NON-STOP MOVEMENTS AND PULLING AT RESTRAINTS, GETTING HIS HIPS MOVED OVER TOWARDS HIS HANDS TO PULL OF ATTENDS, AND GETTING LEGS OVER RAILINGS, ADMINISTERED 2 MG ATIVAN IV. THIS DOES LITTLE TO RELIEVE AGITATION/ANXIOUSNESS OF PT. SECONDARY TO PT BEING ABLE TO MANIPULATE HIS SOFT WRIST RESTRAINTS TO GET HIS HANDS FREE, CONTINUING TO USE TAT WRIST RESTRAINTS FOR PT'S SAFETY. PT HAS MANAGED TO GET AHOLD OF HIS TELEMETRY WIRES AND PULL THEM APART. THESE NEEDED TO BE REPLACED. ALSO PT FIXATES ON OXIMETER PROBE AND IS ABLE TO PULL THIS APART AND BREAK THE WIRING. HAVE BEEN DOING SPOT CHECKS TO MINIMIZE STIMULI.
[2019-02-22 03:30] LABS: BASOPHILS ABSOLUTE AUTO 0.04 K/mm3 (0.00-0.23); BASOPHILS PERCENT AUTO 0 % (0-2); EOSINOPHILS PERCENT AUTO 0 % (0-6); Hematocrit 42.3 % (37.0-53.0); Hemoglobin 13.6 g/dL (13.5-17.5); IMMATURE GRAN ABSOLUTE AUTO 0.22 K/mm3 (0.00-0.10); IMMATURE GRAN PERCENT AUTO 1 % (0-1); LYMPHOCYTES ABSOLUTE AUTO 1.22 K/mm3 (0.84-5.20); LYMPHOCYTES PERCENT AUTO 5 % (21-46); MONOCYTES ABSOLUTE AUTO 1.02 K/mm3 (0.16-1.47); MONOCYTES PERCENT AUTO 4 % (4-13); Mean Corpuscular HGB 33.1 pg (26.0-34.0); Mean Corpuscular HGB Conc 32.2 g/dL (31.5-36.5); Mean Corpuscular Volume 103 fL (80-100); Mean Platelet Volume 10.9 fL (9.1-12.4); NEUTROPHILS ABSOLUTE AUTO 21.91 K/mm3 (1.96-9.15); NEUTROPHILS PERCENT AUTO 90 % (41-73); Platelet Count 229 K/mm3 (150-400); RDW Coefficient Variation 16.4 % (11.7-14.2); RDW Standard Deviation 60.1 fL (35.1-46.3); Red Blood Cell Count 4.11 M/mm3 (4.30-5.90); White Blood Cell Count 24.41 K/mm3 (4.00-11.30)
[2019-02-22 03:45] LABS: Anion Gap 6 mmol/L (6-16); Blood Urea Nitrogen 31 mg/dL (8-24); Bun/Creatinine Ratio 25.8 (12.0-20.0); CO2, Blood 26 mmol/L (21-32); Calcium, Blood 8.2 mg/dL (8.5-10.1); Chloride, Blood 107 mmol/L (98-108); Glomerular Filtration Rate >60 (60-); Glucose, Blood 176 mg/dL (70-99); Potassium, Blood 5.2 mmol/L (3.5-5.5); Sodium, Blood 139 mmol/L (136-145)
--- NOTE | 2019-02-22 05:39 | NUR ---
PT HAS BEEN ABLE TO SLEEP FOR APPROX 30 MINUTES THIS NIGHT. AWAKENS AND RESUMES SITTING FORWARD AND PULLING AT RESTRAINTS. PT SITS UPRIGHT AND THEN DROPS HIS HEAD BETWEEN HIS KNEES AND HITS HIS HEAD INTO MATTRESS. PT REPEATS THIS FREQUENTLY. DOES NOT DEMONSTRATE INTENT TO HARM HIMSELF. IS NOT REDIRECTABLE.
--- NOTE | 2019-02-22 08:45 | NUR ---
PT CONT TO SET UP IN BED AND IS RESISTING THE RESTRAINTS AND IN NEARLY CONSTNAT MOTION. PT WILL MOAN A WORD OR TWO BUT NO PHRASES AND VERY SLOW TO REDIRECT AND UNABLE TO REMEMBER CONVERSATION OR INSTRUCTIONS. PT CONT TO PULL AT LINES AND RESTAINTS. IVK TKO AND ABX INFUSING. BL CRACKLES BUT NO RESP DISTRESS. NOTED.
[2019-02-22 09:11] LABS: HBSAG SCREEN Negative (Negative); HEP A AB, IGM Negative (Negative); HEP B CORE AB, IGM Negative (Negative); HEP C VIRUS AB <0.1 (0.0-0.9)
--- NOTE | 2019-02-22 10:39 | NUR ---
PT HAS ALSO RECIEVED ATIVAN 2MG AND PRECEDEX GTT AND PT REMAINS AGITATED BUT MAYBE SLOWING DOWN. WILL MONITOR FOR EFFECT.
[2019-02-22 15:10] LABS: Vancomycin, Trough 22.1 ug/mL (5.0-10.0)
--- NOTE | 2019-02-22 16:51 | NUR ---
1245 ...TO CT AND BACK FOR FACE AND HEAD CT. PT SEDATE ON NOTED DOSE OF PRECEDEX BUT BECAME RESTLESS AND NEARLY UNABLE TO COMPLETE CT IN [place]. HOWEVER ABLE TO OBTAIN CT AND RETURN W/O INCIDENT. PRECEDEX GTT NOW AT 0.5 DUE TO SAGGING BP, MAPS NOTED.
--- NOTE | 2019-02-22 16:58 | NUR ---
PT DAUGHTERS IN AND SPOKE TO THEM UPDATING THEM OF FATHERS STATUS. PT REMAINS INTERMITENTLY RESTLESS BUT ON PRECEDEX GTT AT 0.5 AND VS NOTED. PT IS CALMER LAST 1-2 HOURS OVERALL. NEW ORDERS NOTED.
--- NOTE | 2019-02-22 17:34 | NUR ---
PT CONT BETWEEN REST AND AGITATION. PT REMAINS ON PRECEDEX GTT AT 0.5MCG, ALSO CLINIMIX AT 100ML, AND NS TKO. PT CONT IN RESTRAINTS AND WHEN AWAKE CONT TO PULL ON RESTRAINTS AND NOT FOLLOWING INSTRUCTIONS.
--- NOTE | 2019-02-22 20:00 | NUR ---
ASSUMED CARE RECIEVED REPORT FROM VIRGIL. PT IS CURRENTLY CALM AND NOT MOVING, BUT HAS BEEN AGITATED PER REPORT. HE IS CONFUSED AND GOING THROUGH ETOH WITHDRAWLS. PT IS IN TAT X 2 (UPPER EXT.). CURRENT GTTP: PRECEDEX 0.2MCG/KG/HR, NS TKO AND CLINIMAX 100ML/HR. PT HAS PADS ON BED DUE TO KICKING SIDE RAILS. PT HAS ADEQUATE MAP AND HR SEE VS. BED LOW AND LOCKED.
--- NOTE | 2019-02-22 21:41 | NUR ---
UPDATE CIWA OF 14; PT UNABLE TO RESPOND TO ANY QUESTIONS ASKED. MOVING CONSTANTLY - RESTLESS, AND AGITATED; WITH MOMENTS OF REST; KEEPS FIGHTING RESTRAINTS, AND IS UNABLE TO BE REDIRECTED. MEDICATED WITH ATIVAN; PRECEDEX IS AT 0.4 - NOW THAT HR AND PRESSURE IS ADEQUATE.
--- NOTE | 2019-02-23 00:24 | NUR ---
UPDATE PT CIWA 11-14 THROUGHOUT NIGHT. AGITATION, RESTLESSNESS AND CONSTANT MOVEMENT COMES AND GOES. NO CHANGE NEURO CLEMENTS. HR FLOATS FROM 50'S-80'S; TITRATING PRECEDEX ACCORDINGLY SEE FLOW SHEET. MAP FLOATS FROM HIGH 60'S-80'S. CURRENTLY QUIET, CALM AND NOT AGITATED.
[2019-02-23 03:31] LABS: BASOPHILS ABSOLUTE AUTO 0.02 K/mm3 (0.00-0.23); BASOPHILS PERCENT AUTO 0 % (0-2); EOSINOPHILS PERCENT AUTO 0 % (0-6); Hematocrit 42.4 % (37.0-53.0); Hemoglobin 13.5 g/dL (13.5-17.5); IMMATURE GRAN ABSOLUTE AUTO 0.23 K/mm3 (0.00-0.10); IMMATURE GRAN PERCENT AUTO 1 % (0-1); LYMPHOCYTES ABSOLUTE AUTO 1.56 K/mm3 (0.84-5.20); LYMPHOCYTES PERCENT AUTO 8 % (21-46); MONOCYTES ABSOLUTE AUTO 0.61 K/mm3 (0.16-1.47); MONOCYTES PERCENT AUTO 3 % (4-13); Mean Corpuscular HGB 32.8 pg (26.0-34.0); Mean Corpuscular HGB Conc 31.8 g/dL (31.5-36.5); Mean Corpuscular Volume 103 fL (80-100); NEUTROPHILS ABSOLUTE AUTO 17.48 K/mm3 (1.96-9.15); NEUTROPHILS PERCENT AUTO 88 % (41-73); Platelet Count 197 K/mm3 (150-400); RDW Coefficient Variation 16.6 % (11.7-14.2); Red Blood Cell Count 4.11 M/mm3 (4.30-5.90)
[2019-02-23 03:49] LABS: Alanine Aminotransfer (ALT/SGP 78 U/L (12-78); Albumin, Blood 2.5 g/dL (3.4-5.0); Albumin/Globulin Ratio 0.7 (0.8-1.8); Alk Phos 88 U/L (50-136); Anion Gap 9 mmol/L (6-16); Aspartate Aminotrans (AST/SGOT 56 U/L (12-37); Bilirubin, Total 0.5 mg/dL (0.1-1.0); Blood Urea Nitrogen 39 mg/dL (8-24); CO2, Blood 23 mmol/L (21-32); Calcium, Blood 8.1 mg/dL (8.5-10.1); Chloride, Blood 108 mmol/L (98-108); Creatinine, Blood 1.26 mg/dL (0.60-1.20); Globulin, Blood 3.5 g/dL (2.2-4.0); Glomerular Filtration Rate >60 (60-); Glucose, Blood 192 mg/dL (70-99); Potassium, Blood 5.2 mmol/L (3.5-5.5); Sodium, Blood 140 mmol/L (136-145)
--- NOTE | 2019-02-23 05:38 | NUR ---
SHIFT SUMMARY PT HAS BEEN AGITATED, CONFUSED, AND RESTLESS ALL NIGHT WITH BRIEF PERIODS OF REST/WORKING SEDATION. ATIVAN DOES NOT SEEM TO BE EFFECTIVE AT THIS POINT; PRECEDEX SEEMES TO BE SEMI EFFECTIVE, ALTHOUGH HEART RATE CAN DROP TO 50'S, AND BLOOD PRESSURE BECOMES SOFT, ALTHOUGH IS STILL ADEQUATE (MAP >65). SEE FLOW SHEET, AND VS. CURRENT GTTPS: PRECEDEX @ 0.6MCG/KG/HR; CLINIMIX @ 100ML/HR, AND NS TKO. PT DOES NOT RESPOND TO ANY COMMANDS, AND WILL ONLY SOMETIME USE GARBLED SPEECH (1-2 WORDS ONLY) IN REPONSE TO VERBAL STIMULI, BUT NOT SURE IF IT IS ACTUALLY AN APPROPRIATE RESPONSE. PT REMAINS IN TAT'S BILATERAL UPPER EXT. CARDIAC - HR RANGES FROM 50'S-80'S, MAP'S HIGH 60'S TO LOW 80'S; NSR/SB ALL NIGHT. GI/ -- PT IS INCONTINENT HAVING 3 UNMEASURED VOIDS, AND NO BM DURING SHIFT. CAME TO BEDSIDE FOR A FEW HOURS DURING MIDDLE OF NIGHT, BUT IS NOW GONE. HAS BEEN EDUCATED ON POC AND CURRENT CONDITION OF PT. WILL BE BACK LATER IN DAY.
[2019-02-23 06:17] LABS: Vancomycin, Trough 21.8 ug/mL (5.0-10.0)
--- NOTE | 2019-02-23 12:31 | NUR ---
0700: CARE ASSUMED, PT RESTING IN BED WITH EYES CLOSED, NO AGITATION OR RESTLESSNESS NOTED AT THIS TIME. BP HYPOTENSIVE, MAP >65, OTHER VSS. 0800: ASSESSMENT COMPLETED, VS REMAIN STABLE. PRECEDEX INFUSING AT 0.4MCG/KG/HR, NS AT TKO, CLINIMIX AT 100ML/HR. ATTENDS ON, TAT RESTRAINTS IN PLACE TO BUE'S, SKIN CHECKED AND INTACT UNDER RESTRAINTS. PT DOES NOT OPEN EYES OR FOLLOW COMMANDS AT THIS TIME, DOES MOAN AND PEREIRA, REMAINS CALM. 0930: PT WAKES BRIEFLY, DOES NOT FOLLOW COMMANDS, PO MEDICATIONS HELD AT THIS TIME FOR ASPIRATION RISK. 1020: PT AWAKE, PULLING AT RESTRAINTS, TRYING TO SIT UP IN BED. CIWA SCORE 11. WHEN THIS RN RETURNED TO BEDSIDE TO ADMINISTER ATIVAN, PT WAS ASLEEP, VSS. ATIVAN HELD AT THIS TIME. 1140: PT AWAKE, AGITATED, THRASHING IN BED AND PULLING AT RESTRAINTS, MOANING BUT NOT SAYING CLEAR WORDS. DOES NOT OPEN EYES OR FOLLOW COMMANDS. DR. JOSEPH AT BEDSIDE, NEW ORDERS RECEIVED. HALDOL ADMINISTERED AT THIS TIME. SPEECH THERAPY CONSULT ORDERED FOR SWALLOW EVAL. 1200: ATTENDS CHANGED, FACE WASHED, ORAL CARE COMPLETED. 1230: PT REMAINS AGITATED AND RESTLESS, PULLING AT RESTRAINTS. VSS, ATIVAN ADMINISTERED PER ORDERS.
--- NOTE | 2019-02-23 12:48 | NUR ---
PT SLEEPING AT THIS TIME, HR 50'S, OTHER VSS. DR. LAWSON AWARE OF CONSULT ORDER.
--- NOTE | 2019-02-23 15:02 | NUR ---
1410: BEDBATH COMPLETED, POLYMEM DOTS X2 PLACED ON PT'S LEFT WRIST WHERE HE HAS RUBBED SMALL RAW SPOTS IN HIS SKIN BY PULLING AGAINST RESTRAINTS, DESPITE INSTRUCTION AND REORIENTATION. ATTENDS CHANGED, ATIVAN ADMINISTERED FOR AGITATION.
--- NOTE | 2019-02-23 17:38 | NUR ---
1600: PT SLEEPING QUIETLY, NO RESTLESSNESS OR AGITATION NOTED AT THIS TIME, VSS. VISITORS AT BEDSIDE. 1730: AT BEDSIDE, PT AGITATED AND MOANING, THRASHING IN BED. MEDICATED WITH ATIVAN PER ORDERS, REPOSITIONED. PRECEDEX INFUSING AT 0.4MCG, CLINIMIX, LIPIDS, AND ABX INFUSING. VSS.
--- NOTE | 2019-02-23 18:42 | NUR ---
1845: PT RESTING IN BED, VSS AT THIS TIME. PT HAS EXPERIENCED PERIODS OF 5-10 SECONDS OF APNEA T/O DAY, APNEA DOES NOT CAUSE DESATURATION. PT REMAINS ANXIOUS, AGITATED AT TIMES. REPOSITIONING DOES NOT SEEM TO HELP. TUFF CUFFS REMAIN IN PLACE PER ORDERS. ATTENDS DRY AT THIS TIME, PT POSITIONED WITH PILLOWS. PRECEDEX, CLNIMIX, LIPIDS, AND ABX INFUSING PER ORDERS. LS CLEAR, DIMINISHED IN BASES, NO COUGH NOTED AT THIS TIME. HR SINUS. REPORT TO ONCOMING SHIFT.
--- NOTE | 2019-02-23 19:19 | NUR ---
ASSUMED CARE RECEIVED REPORT FROM JOSE LUIS. PT IS CONFUSED, AND RESPONDS MINIMALLY AND INAPPROPRIATELY. CURRENT GTTPS: PRECEDEX 0.4MCG/KG/HR, CLINIMIX 100ML/HR, FAT EMULSION 25ML/HR, AND NS TKO. TAT RESTRAINTS ARE APPLIED TO BILATERAL UPPER EXTREMETIES. NO FAMILY AT BEDSIDE.
--- NOTE | 2019-02-23 20:26 | NUR ---
TALKED WITH /DAUGHTER AND DAUGHTER ARE CONCERNED ABOUT THE PLAN OF CARE FOR VIRGIL. THEY ARE ANXIOUS, AND NOT HAPPY WITH WHAT IS GOING ON. CONCERNED WITH: -HES NOT GETTING FOOD BY MOUTH; -HE HAS BACK PAIN AND TAKES IBUPROFEN DAILY AT HOME, BUT HASN'T GOT ANY ANALGESICS IN HOSPITAL; -BEING ON HIS BACK IN THE RESTRAINTS; AND -HE IS GETTING WORSE. THEY DISCUSSED WITH ME THAT THEY WANT TO TALK TO A DOCTOR SOON POSSIBLE AND WILL BE IN THE NEXT MORNING TO ASK THESE QUESTIONS AND TO TALK ABOUT THE IDEA OF GETTING HIM SENT TO "[facility] IN [place], A PLACE THAT SPECIALIZES IN ETOH WITHDRAWELS AND IS NEAR HIS OTHER DAUGHTER". MYSELF AND AURELIO DID OUR BEST TO EDUCATE THEM ON ETOH WITHDRAWELS AND HIS CURRENT PLAN OF CARE, THEY ARE TIRED AND IT IS APPARENT THEY ARE STRUGGLING INTERNALIZING NEW INFORMATION. I DISCUSSED WITH THEM THAT ETOH WD CAN GET WORSE BEFORE THEY GET BETTER, FOR HE HAS BEEN DRINKING DAY AND NIGHT FOR YEARS (STARTED DRINKING WHEN HE WAS 14); THAT HE IS RECIEVING IV NUTRITION, AND IS UNABLE TO SWALLOW ANYTHING BY MOUTH ALONG WITH NOT FOLLOWING COMMANDS OR OPENING HIS EYES, AND COUGHING TO A SIP OF WATER - HE IS A MAJOR ASPIRATION RISK AND WITH COPD WOULD NOT TOLERATE ASPIRATION WELL. I DID MY BEST TO EDUCATE THE IMPORTANCE OF RESTRAINTS AND THAT RIGHT NOW THE BEST PLAN OF CARE IS SUPPORTIVE CARE THROUGH HIS ETOH WD/DT'S, BUT LISTENED TO THEIR CONCERNES AND VALIDATED THEM. THEY WILL RETURN IN THE MORNING TO SPEAK WITH DR. LAWSON.
--- NOTE | 2019-02-23 23:43 | NUR ---
UPDATE PT REMAINS RESTLESS, AGITATED, ANXIOUS, AND TRYING TO GET OUT OF BED. PER FAMILY REQUEST ANALGESIC WAS OBTAINED, AND TORADOL WAS GIVEN - NO CHANGE IN PT BEHAVIOR CNVI = 2+ ALL NIGHT. ALSO PER FAMILY REQUEST I STOOD WITH PT WHILE I TOOK RESTRAINTS OFF ONE AT A TIME, AND PERFORMED RANGE OF MOTION AND GAVE HIM A BREAK. I ATTEMPTED TILTING HIM TO A SIDE TO GET HIM OFF HIS BUTT, BUT HE FINDS HIS WAY BACK THROUGH CONSTANT STRUGGLING.
[2019-02-24 05:00] LABS: BASOPHILS ABSOLUTE AUTO 0.01 K/mm3 (0.00-0.23); BASOPHILS PERCENT AUTO 0 % (0-2); EOSINOPHILS PERCENT AUTO 0 % (0-6); Hematocrit 40.2 % (37.0-53.0); IMMATURE GRAN ABSOLUTE AUTO 0.18 K/mm3 (0.00-0.10); IMMATURE GRAN PERCENT AUTO 1 % (0-1); LYMPHOCYTES ABSOLUTE AUTO 1.62 K/mm3 (0.84-5.20); LYMPHOCYTES PERCENT AUTO 9 % (21-46); MONOCYTES ABSOLUTE AUTO 0.69 K/mm3 (0.16-1.47); MONOCYTES PERCENT AUTO 4 % (4-13); Mean Corpuscular HGB 32.6 pg (26.0-34.0); Mean Corpuscular HGB Conc 32.3 g/dL (31.5-36.5); Mean Corpuscular Volume 101 fL (80-100); Mean Platelet Volume 11.3 fL (9.1-12.4); NEUTROPHILS ABSOLUTE AUTO 15.06 K/mm3 (1.96-9.15); NEUTROPHILS PERCENT AUTO 86 % (41-73); Platelet Count 193 K/mm3 (150-400); RDW Coefficient Variation 16.6 % (11.7-14.2); RDW Standard Deviation 60.4 fL (35.1-46.3); Red Blood Cell Count 3.99 M/mm3 (4.30-5.90); White Blood Cell Count 17.56 K/mm3 (4.00-11.30)
[2019-02-24 05:20] LABS: Alanine Aminotransfer (ALT/SGP 72 U/L (12-78); Albumin, Blood 2.6 g/dL (3.4-5.0); Albumin/Globulin Ratio 0.8 (0.8-1.8); Alk Phos 74 U/L (50-136); Anion Gap 11 mmol/L (6-16); Aspartate Aminotrans (AST/SGOT 53 U/L (12-37); Bilirubin, Total 0.7 mg/dL (0.1-1.0); Blood Urea Nitrogen 51 mg/dL (8-24); Bun/Creatinine Ratio 39.2 (12.0-20.0); CO2, Blood 19 mmol/L (21-32); Calcium, Blood 7.9 mg/dL (8.5-10.1); Chloride, Blood 111 mmol/L (98-108); Globulin, Blood 3.2 g/dL (2.2-4.0); Glomerular Filtration Rate 60 (60-); Glucose, Blood 160 mg/dL (70-99); Potassium, Blood 5.1 mmol/L (3.5-5.5); Sodium, Blood 141 mmol/L (136-145); Total Protein, Blood 5.8 g/dL (6.4-8.2)
[2019-02-24 05:32] LABS: Vancomycin, Trough 24.8 ug/mL (5.0-10.0)
--- NOTE | 2019-02-24 06:19 | NUR ---
SHIFT SUMMARY PT REMAINS RESTLESS AND AGITATED. HE IS OFF PRECEDEX DUE TO HYPOTENSION AND BRADYCARDIA. PRESSURES AND HR NORMALIZED AFTER DOING SO. HE DOES NOT FOLLOW COMMANDS OR RESPONDS APPROPRIATELY. HE WILL SOMETOMES PRODUCE SPEACH THAT DOESN'T MAKE ANY SENSE. HE CONSTANTLY FIGHTS RESTRAINTS, HE KICKS OFF BLANKETS DESPITE BEING COOL TO TOUCH. HE DOES NOT STAY ON A SIDE WHEN TURNED/REPOSITIONED DESITE SAYING HE HAS "CHRONIC BACK PAIN, AND NEEDS TO BE OFF HIS BACK/BUTT". SEE VS FOR BP AND HR TRENDS. UPDATED AFTER INITIAL DISCUSSION OVER NIGHT.
--- NOTE | 2019-02-24 07:37 | NUR ---
ASSUMED CARE REPORT FROM ALIRIO ROBLERO. PATIENT IS THRASHING IN BED, PULLING AGAINST TOUGH CUFFS. CIWA GREATER THAN 30. ATIVAN 4 MG IV GIVEN QI5 MIN. X 2. CONTINUES TO TRY TO SIT UP.
--- NOTE | 2019-02-24 08:03 | NUR ---
FAMILY AT BEDSIDE. EDUCATED ON CIWA SCALE AND HOW IT IS USED. WOULD LIKE TO TALK TO MD WHEN AVAILABLE
--- NOTE | 2019-02-24 08:32 | NUR ---
FAMILY HAS SET UP PASSWORD FOR DOOR TO LIMIT VISITORS. SHIRT MAKER STUDENT ATTEMPTING NEW PIV'S.
--- NOTE | 2019-02-24 08:49 | NUR ---
MD VISIT DR. JOSEPH IN. UPDATING FAMILY ON CURRENT COURSE OF TREATMENT.
--- NOTE | 2019-02-24 09:04 | NUR ---
PATIENT CONTINUES TO THRASH WITH CIWA GREATER THAN 30. ATIVAN 4MG IV GIVEN FOR A TOTAL FOR SHIFT OF 16 MG
--- NOTE | 2019-02-24 09:14 | NUR ---
VALERIA IN CASE MANAGEMENT CONTACTED TO BRING FAMILY INFORMATION ON THE ADAPT PROGRAM
--- NOTE | 2019-02-24 10:35 | NUR ---
PRECEDEX RESTARTED AT 0.2 MCG/KG/HOUR
--- NOTE | 2019-02-24 10:47 | NUR ---
PRECEDEX TITRATED TO 0.4 MCG/KG/HR
--- NOTE | 2019-02-24 11:21 | NUR ---
MD VISIT DR. LAWSON IN. PRECEDEX IS AT 0.7 MCG/KG/HOUR. PATIENT CONTINUES TO THRASH IN BED
--- NOTE | 2019-02-24 11:35 | NUR ---
ORDERS FROM DR. LAWSON TO TURN PRECEDEX UP TO 1.4 MCG/KG/HR
--- NOTE | 2019-02-24 13:07 | NUR ---
PATIENT SLEEPING AFTER FENTANYL 50 MCG IV AND ZYPREXA. PRECEDEX REMAINS AT 1.4 MCG/KG/HR. BREATHING THROUGH HIS MOUTH WITH OCCASIONAL APNEAC OCCURRENCES. NC 2L PLACED IN HIS MOUTH. POOR PERFUSION FOR BIOX. 92 - 100% WHEN IT DOES CORELATE WITH HR. WARM BLANKETS PLACED.
--- NOTE | 2019-02-24 13:31 | NUR ---
PRECEDEX TITRATED TO 1.2 MCG/KG/HR. WARM BLANKET WRAPPED AROUND HIS HAND WHERE BIOX IS ON HIS FINGER.
[2019-02-24 13:33] LABS: Magnesium, Blood 2.7 mg/dL (1.6-2.4); Phosphorus, Blood 4.8 mg/dL (2.5-4.9)
--- NOTE | 2019-02-24 16:50 | NUR ---
PATIENT IS SLEEPING NOW. LOCKED CUFFS REPLACED WITH SWR. PRECEDEX TITRATED TO 1.0 MCG/KG/HR FOR BP MAP OF 64. 2L NC IN MOUTH. WARM BLANKETS IN PLACE. TEMP 97.0. FINGERTIPS ARE NO LONGER CYANOTIC. PATIENT RECEIVED A TOTAL OF 20 MG OF ATIVAN IV FOR SHIFT. FENTANYL 50 MCG IV AND 25 MCG IV IN ADDITION TO PRECEDEX HAS SEEMED TO WORK WELL FOR PATIENT. HE ALSO RECEIVED ZYPREXA ODT. BIOX 99%
--- NOTE | 2019-02-24 17:38 | NUR ---
TITRATED PRECEDEX TO 0.7 MCG/KG/HR. REPOSTIONED PATIENT. BP TO 81/71 (76)
--- NOTE | 2019-02-24 18:48 | NUR ---
PRECEDEX ON STBY FOR HYPOTENSION. BP IMPROVES IF PATIENT AWAKENED, BUT HE BECOMES IMMEDIATELY AGITATED AGAIN. PERFUSION IMPROVED WHILE SLEEPING, FINGERS ARE NOT CYANOTIC AND BIOX READING WELL. WILL REPORT TO ONCOMING SHIFT
--- NOTE | 2019-02-24 19:10 | NUR ---
ASSUMED CARE BEDSIDE REPORT RECIEVED. PT IS RESTING QUIETLY UPON ENTERING ROOM. ATTENDS NOTED TO BE FULL WITH URINE. WHEN STARTING TO CHANGE PT, PT IMMEDIATELY BECAME AGITATED AND RESTLESS. PRECEDEX RESTARTED AT THIS TIME AT 0.2 MCG/KG/HR AND FENTANYL IV GIVEN. WHEN AGITATED SPO2 DROPS TO 80'S. AFTER PT CHANGED AND RESTING QUIETLY SPO2 >94% ON 2L O2 NC. VITAL SIGNS STABLE AT THIS TIME. PT MOANS OUT AND IS ABLE TO SAY SOME WORDS. NOT FOLLOWING COMMANDS. NO FAMILY AT BEDSIDE. SBW RESTRAINTS IN PLACE AND PADS TO BED RAILS IN PLACE. CLINIMIX INFUSING AT 100 ML/HR, NS TKO, AND ABX. WILL CONTINUE TO MONITOR.
[2019-02-25 04:00] LABS: BASOPHILS ABSOLUTE AUTO 0.01 K/mm3 (0.00-0.23); BASOPHILS PERCENT AUTO 0 % (0-2); EOSINOPHILS ABSOLUTE AUTO 0.02 K/mm3 (0.00-0.68); EOSINOPHILS PERCENT AUTO 0 % (0-6); Hematocrit 37.7 % (37.0-53.0); IMMATURE GRAN ABSOLUTE AUTO 0.09 K/mm3 (0.00-0.10); IMMATURE GRAN PERCENT AUTO 1 % (0-1); LYMPHOCYTES ABSOLUTE AUTO 2.04 K/mm3 (0.84-5.20); LYMPHOCYTES PERCENT AUTO 19 % (21-46); MONOCYTES ABSOLUTE AUTO 0.38 K/mm3 (0.16-1.47); MONOCYTES PERCENT AUTO 4 % (4-13); Mean Corpuscular HGB Conc 31.8 g/dL (31.5-36.5); Mean Platelet Volume 11.2 fL (9.1-12.4); NEUTROPHILS ABSOLUTE AUTO 7.98 K/mm3 (1.96-9.15); NEUTROPHILS PERCENT AUTO 76 % (41-73); Platelet Count 141 K/mm3 (150-400); RDW Coefficient Variation 16.5 % (11.7-14.2); RDW Standard Deviation 62.6 fL (35.1-46.3); Red Blood Cell Count 3.64 M/mm3 (4.30-5.90); White Blood Cell Count 10.52 K/mm3 (4.00-11.30)
[2019-02-25 04:02] LABS: Mean Corpuscular Volume 104 fL (80-100)
[2019-02-25 04:18] LABS: Alanine Aminotransfer (ALT/SGP 63 U/L (12-78); Albumin, Blood 2.3 g/dL (3.4-5.0); Albumin/Globulin Ratio 0.8 (0.8-1.8); Alk Phos 61 U/L (50-136); Anion Gap 8 mmol/L (6-16); Aspartate Aminotrans (AST/SGOT 47 U/L (12-37); Bilirubin, Total 0.6 mg/dL (0.1-1.0); Blood Urea Nitrogen 51 mg/dL (8-24); Bun/Creatinine Ratio 42.1 (12.0-20.0); CO2, Blood 22 mmol/L (21-32); Chloride, Blood 113 mmol/L (98-108); Creatinine, Blood 1.21 mg/dL (0.60-1.20); Globulin, Blood 2.8 g/dL (2.2-4.0); Glomerular Filtration Rate >60 (60-); Glucose, Blood 175 mg/dL (70-99); Potassium, Blood 4.7 mmol/L (3.5-5.5); Sodium, Blood 143 mmol/L (136-145); Total Protein, Blood 5.1 g/dL (6.4-8.2)
--- NOTE | 2019-02-25 06:05 | NUR ---
SHIFT SUMMARY NO ACUTE CHANGES THIS SHIFT. PT REMAINS AGITATED AND RESTLESS WHEN ON WAITER/WAITRESS TAVERN SEDATION. PT UNABLE TO FOLLOW COMMANDS AND ONLY MOANS OUT. PT SEDATED WITH PRECEDEX AT 0.5 MCG/KG/HR. CLINIMIX INFUSING AT 100 ML/HR AND NS TKO. PT ON 2L O2 NC, VITAL SIGNS HAVE REMAINED STABLE WITH HR IN 40-50'S. SBW RESTRAINTS REMAIN IN PLACE. PT WITH ATTENDS IN PLACE WITH MULTIPLE INCONTINENT VOIDS THROUGHOUT THE SHIFT. WILL CONTINUE TO MONITOR AND REPORT OFF TO ONCOMING RN.
--- NOTE | 2019-02-25 07:53 | NUR ---
PT SEDATED ON PRECEDEX AT 0.5MCG. PT AROUSES AND BECOMES RESTLESS AND AGITATED. AT REST BREATHING SHALLOW WITH RATE 10-14. HEART RATE 45 AT REST, 50-60 WHEN RESTLESS. PT HYPOTENSIVE AT 79/35 W MAP 49. R AC IV INFILTRATED. POOR PERFUSION T/O. COLD DUSKY/PALE EXTREMETIES. DR LAWSON CALLED AND GIVEN UPDATE. ABG AND PICC LINE ORDERED. PT'S CALLED TO UPDATE; NO ANSWER
[2019-02-25 08:10] LABS: PCO2 Arterial 31.8 mmHg (35-45); PO2 Arterial 165 mmHg (80-100); pH Blood Arterial 7.35 (7.35-7.45)
[2019-02-25 10:06] LABS: Source, Urine Catheter
[2019-02-25 10:10] LABS: Appearance, Urine Clear (Clear); Bilirubin, Urine Neg (Neg); Blood, Urine Neg (Neg); Color, Urine Yellow (P-Yellow); Glucose Qualitative, Urine Neg (Neg); Ketones, Urine Neg (Neg); Leukocyte Esterase, Urine 1+ (Neg); Nitrite, Urine Neg (Neg); Protein, Urine 1+ (Neg); Urobilinogen, Urine NORM (Normal)
[2019-02-25 10:20] LABS: Red Blood Cells, Urine 0-2 /hpf (0-2); Squamous Epithelial Cells Rare /hpf (Few); White Blood Cells, Urine 0-2 /hpf (0-5)
[2019-02-25 10:21] LABS: Bacteria Rare /hpf
--- NOTE | 2019-02-25 17:25 | NUR ---
BRAN CATH PLACED WITH TEMP PROBE THIS AM AND FOUND TO HAVE CORE TEMP OF 91.2. BEAR HUGGER PLACED AND TEMP IS NOW 96.4; BEAR HUGGER REMOVED. PICC PLACED TO TATIANA W/O DIFFICULTY; PT SLEPT THROUGH THE PROCEDURE. DOBBHOFF PLACED TO RIGHT NARE W SOME DIFFICULTY. PLACED ON ATTEMPT #3 IT WAS COILING IN THE BACK OF PT'S THROAT. OKAY TO USE PER XRAY, JEVITY TF STARTED AT 25CC/HR WITH GOAL OF 65CC/HR. ALBUMIN 25GM X2 AND 500CC NS GIVEN FOR HYPOTENSION W GOOD EFFECT. PT REMAINS SLIGHTLY HYPOTENSIVE BUT W MAPS>65, HEART RATE RANGING IN 50'S WHILE CALM, 80-90 WHILE AWAKE. PRECEDEX UP TO 1MCG FROM 0.5MCG. WHEN STIMULATED PT AWAKENS IN ACUTE DELIRIUM TREMENS; YELLING, MOANING, THRASHING, PULLING ON RESTRAINTS, DIAPHORETIC, TACHY. PT ABLE TO JACQUARD LOOM CARD CHANGER HAND TO COMMAND ONCE. PT STATED HE WAS IN PAIN A COUPLE TIMES; FAMILY STATES HE HAS CHRONIC BACK AND SHOULDER PAIN; MEDICATED W FENT; W GOOD EFFECT. SATS 98-100% ON 3L VIA NC. PERIPHERAL PERFUSION MUCH IMPROVED NOW THAT CORE TEMP IS WNL.
--- NOTE | 2019-02-25 19:55 | NUR ---
ASSUMED CARE BEDSIDE REPORT RECIEVED. PT IS RESTING IN BED CALMLY AT THIS TIME. PT SEDATED WITH PRECEDEX AT 0.8 MCG/KG/HR. PT UNAROUSEABLE AT THIS TIME. PT ON 2L O2 NC. PT WITH DOBHOFF IN PLACE WITH TF AT 30 ML/HR. PICC TO TATIANA IN PLACE WITH NS TKO AND PRECEDEX INFUSING. PT WITH BRAN IN PLACE WITH YELLOW OUTPUT NOTED. PT COOL TO TOUCH, MORE WARM BLANKETS APPLIED, TEMP 95.9. BEBE VEST AND SBW RESTRAINTS IN PLACE. NO FAMILY AT BEDSIDE. WILL CONTINUE TO MONITOR.
[2019-02-26 04:00] LABS: BASOPHILS ABSOLUTE AUTO 0.01 K/mm3 (0.00-0.23); BASOPHILS PERCENT AUTO 0 % (0-2); EOSINOPHILS ABSOLUTE AUTO 0.07 K/mm3 (0.00-0.68); EOSINOPHILS PERCENT AUTO 1 % (0-6); Hemoglobin 11.7 g/dL (13.5-17.5); IMMATURE GRAN ABSOLUTE AUTO 0.06 K/mm3 (0.00-0.10); IMMATURE GRAN PERCENT AUTO 1 % (0-1); LYMPHOCYTES ABSOLUTE AUTO 1.45 K/mm3 (0.84-5.20); LYMPHOCYTES PERCENT AUTO 13 % (21-46); MONOCYTES ABSOLUTE AUTO 0.56 K/mm3 (0.16-1.47); MONOCYTES PERCENT AUTO 5 % (4-13); Mean Corpuscular HGB 33.1 pg (26.0-34.0); Mean Corpuscular HGB Conc 32.5 g/dL (31.5-36.5); Mean Corpuscular Volume 102 fL (80-100); NEUTROPHILS ABSOLUTE AUTO 8.84 K/mm3 (1.96-9.15); NEUTROPHILS PERCENT AUTO 81 % (41-73); Platelet Count 131 K/mm3 (150-400); RDW Coefficient Variation 16.5 % (11.7-14.2); RDW Standard Deviation 60.7 fL (35.1-46.3); Red Blood Cell Count 3.54 M/mm3 (4.30-5.90); White Blood Cell Count 10.99 K/mm3 (4.00-11.30)
[2019-02-26 04:16] LABS: Alanine Aminotransfer (ALT/SGP 52 U/L (12-78); Albumin, Blood 2.9 g/dL (3.4-5.0); Alk Phos 57 U/L (50-136); Anion Gap 5 mmol/L (6-16); Aspartate Aminotrans (AST/SGOT 40 U/L (12-37); Bilirubin, Total 1.1 mg/dL (0.1-1.0); Blood Urea Nitrogen 51 mg/dL (8-24); Bun/Creatinine Ratio 46.8 (12.0-20.0); CO2, Blood 22 mmol/L (21-32); Calcium, Blood 7.5 mg/dL (8.5-10.1); Chloride, Blood 117 mmol/L (98-108); Creatinine, Blood 1.09 mg/dL (0.60-1.20); Globulin, Blood 2.8 g/dL (2.2-4.0); Glomerular Filtration Rate >60 (60-); Glucose, Blood 116 mg/dL (70-99); Magnesium, Blood 2.7 mg/dL (1.6-2.4); Potassium, Blood 4.8 mmol/L (3.5-5.5); Sodium, Blood 144 mmol/L (136-145); Total Protein, Blood 5.7 g/dL (6.4-8.2)
--- NOTE | 2019-02-26 05:58 | NUR ---
SHIFT SUMMARY PT CONTINUES TO ALTERNATE BETWEEN SOMNOLENCE AND EXTREME AGITATION THIS SHIFT. PRECEDEX HAS REMAINED ON AT 1 MCG/KG/HR AND PT MED WITH FENTANYL PRN WITH GOOD EFFECT. PT APPEARS TO BE MORE CALM AFTER MED WITH FENTANYL. WHEN MORE AWAKE AND AGITATED PT ABLE TO MOAN OUT SOME WORDS. PT NOT FOLLOWING COMMANDS AND CONTINUES TO ATTEMPT TO PULL AT LINES/TUBES. SBW RESTRAINTS AND BEBE VEST REMAIN INPLACE. PT RESPONDED WELL TO 500 ML FLUID BOLUS AT BEGINNING OF SHIFT AND BP HAS REMAINED STABLE WITH MAP >60. PT ON 2L O2 NC. TEMP HAS REMAINED AROUND 95-96 DEGREES DESPITE CONTINUALLY KICKING OFF BLANKETS WHEN APPLIED. PICC TO TATIANA C/D/I, NS INFUSING TKO. DOBHOFF REMAINS IN PLACE WITH TF ADVANCED TO 65 ML/HR GOAL RATE. BRAN IN PLACE WITH DARK YELLOW/LOKESH OUTPUT NOTED. WILL CONTINUE TO MONITOR AND REPORT OFF TO ONCOMING RN.
--- NOTE | 2019-02-26 08:27 | NUR ---
CARE ASSUMED CARE AND REPORT ASSUMED FROM NIXON RN. PT SLEEPING BUT AROUSABLE TO STIMULATION. SUDDENLY AWAKENS AND BEGINS MOANING AND PULLING AT RESTRAINTS. INCONSOLABLE AND UNABLE TO FOLLOW COMMANDS. NSR, HR 60S AND MAP GREATER THAN 65. FENTANYL 50 MCG IVP GIVEN THIS AM. LUNG SOUNDS COARSE THROUGHOUT WITH CONGESTED AUDIBLE SOUNDS. 2L NC, SPO2 95%. BRAN CATH SECURED. PRECEDEX GTT INFUSING AT 1 MCG. BUE RESTRAINED AND SECURED IN BEBE VEST. WILL CONTINUE TO MONITOR.
--- NOTE | 2019-02-26 11:43 | NUR ---
REASSESSMENT PT SLEEPING AND REMAINS CALM WITH PRECEDEX GTT INFUSING AT 1 MCG AND FENTANYL IVP NEEDED. UPDATED AT BEDSIDE BY RN AND MD LAWSON. PT REMAINS RESTRAINED AND IN BEBE VEST. TOLERATING TF AT GOAL RATE. WILL CONTINUE TO MONITOR.
--- NOTE | 2019-02-26 15:19 | NUR ---
REASSESSMENT PT REMAINS ANXIOUS AND AGITATED WHEN AWAKENED AND STIMULATED. INCONSOLABLE WHEN AWAKE. RECEIVED BEDBATH AND LINEN CHANGE AND SINCE THEN HAS ONLY BEEN IN BUE WRIST RESTRAINTS AND HAS BEEN OUT OF BEBE VEST. NOW ABLE TO TURN PT MORE ON HIS SIDES. FIRM AND BRUISED ABDOMEN SHOWN TO MD LAWSON AND PLAN DISCUSSED. CONTINUES TO TOLERATE TF THROUGH DOPHOFF. PRECEDEX GTT INFUSING AT 1.0 AND ADJUNCT FENTANYL IVP GIVEN NEEDED. HOB ELEVATED. PT CONTINUES TO HAVE COARSE LUNG SOUNDS. SPO2 REMAINS 95-97% ON 2L NC. WILL CONTINUE TO MONITOR.
--- NOTE | 2019-02-26 17:31 | NUR ---
SHIFT SUMMARY PT RESTLESS MOST OF SHIFT. HAS BEEN ON PRECEDEX GTT ENTIRE SHIFT, TITRATED BETWEEN 1.0-1.2 MCG DURING SHIFT. ADMINISTERED ADJUNCT FENTANYL EVERY FEW HOURS NEEDED WHEN PT WOULD BECOME RESTLESS AND BEGIN MOANING. HOB ELEVATED AND PT TURNED OFTEN TOLERATED. CONTINUES TO TOLERATE TF AT GOAL RATE TO DOPHOFF. REMAINED BUE RESTRAINTS ENTIRE SHIFT. BEBE VEST REMOVED FOLLOWING BEDBATH. UPDATED. WILL GIVE BEDSIDE, HANDOFF REPORT TO KAITLYN RN.
[2019-02-26 17:35] LABS: Vancomycin, Trough 18.7 ug/mL (5.0-10.0)
--- NOTE | 2019-02-26 19:30 | NUR ---
ASSUMED CARE BEDSIDE REPORT RECIEVED. PT IS LAYING IN BED, SEDATED WITH PRECEDEX AT 1 MCG/KG/HR. PT QUICKLY BECOMES AGITATED WITH STIMULI AND IS THRASHING IN BED. PT MED WITH FENTANYL PRN. SBW RESTRAINTS IN PLACE. PT UNABLE TO FOLLOW COMMANDS OR ANSWER QUESTIONS. PT MOANING OUT AT TIMES. VITAL SIGNS STABLE AT THIS TIME, PT ON 1L O2 NC. PICC TO TATIANA C/D/I, NS INFUSING TKO. DOBHOFF IN PLACE WITH TF AT 65 ML/HR GOAL RATE. BRAN IN PLACE WITH LOKESH OUTPUT NOTED. NO FAMILY AT BEDSIDE. WILL CONTINUE TO MONITOR.
[2019-02-27 03:36] LABS: BASOPHILS ABSOLUTE AUTO 0.02 K/mm3 (0.00-0.23); BASOPHILS PERCENT AUTO 0 % (0-2); EOSINOPHILS PERCENT AUTO 1 % (0-6); Hematocrit 38.4 % (37.0-53.0); Hemoglobin 12.5 g/dL (13.5-17.5); IMMATURE GRAN ABSOLUTE AUTO 0.09 K/mm3 (0.00-0.10); IMMATURE GRAN PERCENT AUTO 1 % (0-1); LYMPHOCYTES ABSOLUTE AUTO 1.17 K/mm3 (0.84-5.20); LYMPHOCYTES PERCENT AUTO 9 % (21-46); MONOCYTES ABSOLUTE AUTO 0.72 K/mm3 (0.16-1.47); MONOCYTES PERCENT AUTO 6 % (4-13); Mean Corpuscular HGB 33.3 pg (26.0-34.0); Mean Corpuscular HGB Conc 32.6 g/dL (31.5-36.5); Mean Corpuscular Volume 102 fL (80-100); Mean Platelet Volume 11.9 fL (9.1-12.4); NEUTROPHILS ABSOLUTE AUTO 10.35 K/mm3 (1.96-9.15); NEUTROPHILS PERCENT AUTO 83 % (41-73); Platelet Count 132 K/mm3 (150-400); RDW Coefficient Variation 16.8 % (11.7-14.2); RDW Standard Deviation 62.4 fL (35.1-46.3); Red Blood Cell Count 3.75 M/mm3 (4.30-5.90); White Blood Cell Count 12.45 K/mm3 (4.00-11.30)
[2019-02-27 03:57] LABS: Alanine Aminotransfer (ALT/SGP 53 U/L (12-78); Albumin, Blood 2.9 g/dL (3.4-5.0); Albumin/Globulin Ratio 0.9 (0.8-1.8); Alk Phos 77 U/L (50-136); Anion Gap 4 mmol/L (6-16); Aspartate Aminotrans (AST/SGOT 37 U/L (12-37); Bilirubin, Total 0.7 mg/dL (0.1-1.0); Blood Urea Nitrogen 40 mg/dL (8-24); Bun/Creatinine Ratio 45.3 (12.0-20.0); CO2, Blood 23 mmol/L (21-32); Calcium, Blood 7.5 mg/dL (8.5-10.1); Chloride, Blood 116 mmol/L (98-108); Creatinine, Blood 0.88 mg/dL (0.60-1.20); Globulin, Blood 3.1 g/dL (2.2-4.0); Glomerular Filtration Rate >60 (60-); Glucose, Blood 159 mg/dL (70-99); Magnesium, Blood 2.6 mg/dL (1.6-2.4); Potassium, Blood 4.5 mmol/L (3.5-5.5); Sodium, Blood 143 mmol/L (136-145)
--- NOTE | 2019-02-27 05:55 | NUR ---
SHIFT SUMMARY NO ACUTE CHANGES THIS SHIFT. PT HAS REMAINED UNCHANGED NEUROLOGICALLY AND CONTINUES TO HAVE PERIODS OF SOMNOLENCE AND SEVERE AGITATION. SBW RESTRAINTS REMAIN IN PLACE. PT MOANS OUT AT TIMES AND THRASHES AROUND IN BED. PRECEDEX REMAINS AT 1 MCG/KG/HR AND PT MED WITH FENTANYL PRN. VITAL SIGNS HAVE REMAINED STABLE WITH PT ON 1-2L O2 NC. PICC TO TATIANA C/D/I, NS INFUSING TKO. DOBHOFF REMAINS IN PLACE WITH TF AT 65 ML/HR GOAL RATE. BRAN REMAINS IN PLACE WITH GOOD URINE OUTPUT THIS SHIFT. NO FAMILY AT BEDSIDE. WILL CONTINUE TO MONITOR AND REPORT OFF TO ONCOMING RN.
--- NOTE | 2019-02-27 07:45 | NUR ---
CARE ASSUMED CARE AND REPORT ASSUMED FROM NIXON AMEZQUITA. PT IS ANXIOUS, SQUIRMING IN BED, CONFUSED, INCONSOLABLE AND DOES NOT RESPOND APPROPRIATELY. HE IS MOANING AND THRASHING. PRECEDEX GTT INCREASED TO 1.2 MCG AND FENTANYL 100 MCG IVP GIVEN TO HELP PT RELAX. LUNG SOUNDS COARSE IN UPPER CHACON AND CLEAR IN BASES. RECEIVING BREATHING TREATMENT AT THIS TIME. PT HAS DECREASED COUGH REFLEX AND SOUNDS RHONCHOUS AT THROAT. DOPHOFF SECURED AND PT IS TOLERATING TF AT GOAL RATE, 65 ML/HR. BS HYPERACTIVE. AFEBRILE. BUE RESTRAINED TO PROTECT LINES. WILL CONTINUE TO MONITOR.
--- NOTE | 2019-02-27 11:11 | NUR ---
REASSESSMENT PT OFF PRECEDEX GTT SINCE 1000. MORE AWAKE NOW AND ABLE TO CLEAR SECRETIONS AND COUGH. ORAL CARE PERFORMED. LS REMAIN COARSE. PT REMAINS CONFUSED BUT IS ABLE TO FOLLOW SIMPLE COMMANDS. BUE REMAIN RESTRAINED. CONTINUES TO TOLERATE TF AT GOAL RATE. NSR, HR 90-100 AND BP ELEVATED DUE TO AGIATION. FENTANYL 50 MCG IVP GIVEN FOR BACK PAIN THAT PT COMPLAINED ABOUT. WILL CONTINUE TO MONITOR.
--- NOTE | 2019-02-27 16:19 | NUR ---
REASSESSMENT PT STOOD AND WAS ABLE TO SHUFFLE INTO CHAIR. HAS BEEN SITTING UPRIGHT IN CHAIR MUMBLING AND ATTEMPTING TO CONVERSE WITH FAMILY. REQUESTING FOOD; STATES HE IS HUNGRY. MULTIPLE MESSAGES LEFT TO SPEECH THERAPY; NO RETURN CALL YET. PT SWALLOWED FEW SIPS OF WATER WITH NO SIGNS OF CHOKING. WAS GIVEN ICE CREAM AND TOLERATED WELL. DENIES PAIN AT THIS TIME. PT IS CONSTANTLY FIDGETING IN BED AND REPOSITIONING HIMSELF. DOES HAVE MILD DIFFICULTY BREATHING WHEN MOVING SO MUCH; 2L NC APPLIED AND WILL CONTINUE TO MONITOR. PT CONTINUES TO HAVE MODERATE AMOUNTS OF THCIK SECRETIONS THAT HE COUGHS UP AND IS ABLE TO SUCTION. PRECEDEX GTT HAS REMAINED OFF SINCE 0930 TODAY. AFEBRILE AT THIS TIME. BP STABLE. ASKING FOR A CIGARETTE; WILL ADMINISTER NICOTINE PATCH ORDERD. WILL CONTINUE TO MONITOR.
--- NOTE | 2019-02-27 18:09 | NUR ---
SHIFT SUMMARY PRECEDEX GTT OFF AT 0930. SINCE THEN, PT HAS BECOME MORE AWAKE AND ALERT. FAMILY VISITED DURING AFTERNOON AND SAT AND TALKED WITH PT. HE WAS ABLE TO STAND AND PIVOT INTO RECLINER CHAIR WITH ASSISTANCE, WHERE HE SAT FOR FEW HOURS. TOLERATED FEW SIPS OF WATER AND SOME ICE CREAM PER HIS REQUEST; NO SIGNS OF CHOKING. ORAL CARE DONE MULTIPLE TIMES TODAY. PT RECIEVED BEDBATH AND LINEN CHANGE. COUGH RELFEX STRONGER AND PT ABLE TO SPIT UP MODERATE AMOUNT OF DARK SECRETIONS. TOLERATED TF THROUGH DOPHOFF AT GOAL RATE. URINE OUTPUT ADEQUATE. FENTANYL IVP GIVEN NEEDED FOR PAIN. WILL GIVE BEDSIDE, HANDOFF REPORT TO KAITLYN RN.
--- NOTE | 2019-02-27 19:45 | NUR ---
ASSESSMENT/ASSUMED CARE PT SITTING UP IN BED WATCHING TV. SPEECH GARBLED BUT ABLE TO UNDERSTAND. PT A&O TO SELF. FOLLOWING INSTRUCTIONS. BED ALARM ON. PT IMPULSIVE. C/O BACK PAIN. REPOSITIONED AND BACK RUB DONE. LINES CHANGED. LUNG COARSE TO UPPER AIRWAY. PT ON 2 LITERS O2 VIA NC. PRODUCTIVE COUGH, PT DOING SELF SUCTIONING. HEART RATE REGULAR BUT ELEVATED. BP ELEVATED. PT TO RECEIVE COZAAR. BT+ ABD SOFT AND NONTEDER. TUBE FEED VIA ALLEGRA ANDREA AT GOAL RATE OF 65 ML/HR WITH H2O AT 145 ML Q4HR. BRAN CATH PATENT DRAINING DARK YELLOW URINE.
--- NOTE | 2019-02-27 20:40 | NUR ---
FAMILY CALLED AND UPDATE GIVEN. PT MOVING SELF AROUND IN BED. FOLLOWING SOME INSTRUCTIONS. SAID SHE WILL COME STAY THE NIGHT TONIGHT
--- NOTE | 2019-02-27 21:31 | NUR ---
PAIN PT RESTLESS, C/O BACK PAIN 05/30 MED WITH FENTANYL 50 MCQ
--- NOTE | 2019-02-27 22:07 | NUR ---
VS CALL OUT TO DR LAWSON REGARDING HR 110 AND BP 155/103 MAP 131
--- NOTE | 2019-02-27 22:14 | NUR ---
ORDERS RECEIVED ORDER FROM DR LAWSON FOR METOPROLO 25 MG ONE TIME PT, FOR BP AND HR ELEVATION
--- NOTE | 2019-02-28 00:07 | NUR ---
PAIN PT RESTLESS IN BED. C/O BACK PAIN PT STATES,"IT'S BAD". PT MED WITH FENTANYL 50 MCQ
--- NOTE | 2019-02-28 03:04 | NUR ---
ELEVATED BP CALL OUT TO DR LAWSON REGARDING BLOOD PRESSURE 144/115 RECHECK 141/105. HEART RATE 89-100. RECEIVED ORDER
[2019-02-28 03:34] LABS: BASOPHILS ABSOLUTE AUTO 0.01 K/mm3 (0.00-0.23); BASOPHILS PERCENT AUTO 0 % (0-2); EOSINOPHILS ABSOLUTE AUTO 0.19 K/mm3 (0.00-0.68); EOSINOPHILS PERCENT AUTO 2 % (0-6); Hematocrit 37.5 % (37.0-53.0); Hemoglobin 12.1 g/dL (13.5-17.5); IMMATURE GRAN ABSOLUTE AUTO 0.06 K/mm3 (0.00-0.10); IMMATURE GRAN PERCENT AUTO 1 % (0-1); LYMPHOCYTES ABSOLUTE AUTO 1.54 K/mm3 (0.84-5.20); LYMPHOCYTES PERCENT AUTO 12 % (21-46); MONOCYTES ABSOLUTE AUTO 1.06 K/mm3 (0.16-1.47); MONOCYTES PERCENT AUTO 9 % (4-13); Mean Corpuscular HGB 32.9 pg (26.0-34.0); Mean Corpuscular HGB Conc 32.3 g/dL (31.5-36.5); Mean Corpuscular Volume 102 fL (80-100); Mean Platelet Volume 11.9 fL (9.1-12.4); NEUTROPHILS ABSOLUTE AUTO 9.61 K/mm3 (1.96-9.15); NEUTROPHILS PERCENT AUTO 77 % (41-73); Platelet Count 128 K/mm3 (150-400); RDW Coefficient Variation 17.3 % (11.7-14.2); RDW Standard Deviation 62.4 fL (35.1-46.3); Red Blood Cell Count 3.68 M/mm3 (4.30-5.90); White Blood Cell Count 12.47 K/mm3 (4.00-11.30)
[2019-02-28 03:50] LABS: Anion Gap 3 mmol/L (6-16); Blood Urea Nitrogen 29 mg/dL (8-24); Bun/Creatinine Ratio 35.2 (12.0-20.0); CO2, Blood 27 mmol/L (21-32); Calcium, Blood 8.1 mg/dL (8.5-10.1); Chloride, Blood 114 mmol/L (98-108); Creatinine, Blood 0.83 mg/dL (0.60-1.20); Glomerular Filtration Rate >60 (60-); Glucose, Blood 126 mg/dL (70-99); Magnesium, Blood 2.2 mg/dL (1.6-2.4); Phosphorus, Blood 2.3 mg/dL (2.5-4.9); Potassium, Blood 4.4 mmol/L (3.5-5.5); Sodium, Blood 144 mmol/L (136-145)
--- NOTE | 2019-02-28 05:44 | NUR ---
SHIFT SUMMARY PT AWAKE MOST OF THE NIGHT. TURNING AND MOVING SELF IN BED. REORIENTED FREQUENTLY. FOLLOWING INSTRUCTIONS. BED ALARM ON. DR LAWSON NOTIFIED REGARDING HTN, PT MED WITH LOPRESSOR AND CATAPRES DURING THE NIGHT. PT C/O BACK PAIN MED WITH FENTANYL 50 MCQ WITH GOOD RESULTS. PRECEDEX REMAINED OFF DURING THE NIGHT. NO ATIVAN GIVEN. PT SITTING UP WATCHING TV. REPORT TO ON COMING NURSE
--- NOTE | 2019-02-28 09:36 | NUR ---
MD VISIT DR. OLMOS IN. FAMILY AT BEDSIDE.
--- NOTE | 2019-02-28 11:03 | NUR ---
MD VISIT DR. JOSEPH IN. NO NEW ORDERS
--- NOTE | 2019-02-28 15:19 | NUR ---
TUBE FEEDING STOPPED AFTER PATIENT FINISHED HIS LUNCH. DOBHOFF TUBE REMOVED. BRAN CATHETER DC'D AND PATIENT AMBULATED THE PERIMETER OF THE WEST SIDE OF THE UNIT. BACK TO BED AFTER FOR A SHORT NAP. OT IN NOW TO WORK WITH HIM.
[2019-02-28 17:48] LABS: Vancomycin, Trough 11.9 ug/mL (5.0-10.0)
--- NOTE | 2019-02-28 18:38 | NUR ---
SHIFT SUMMARY: OOB TO CHAIR IN AM. ONE DOSE OF FENTANYL GIVEN FOR HIS BACK PAIN. SOMNOLENT AND CONFUSED IN AM, WITH BEBE VEST ON TO KEEP HIM FROM FALLING OUT OF CHAIR. ZYPREXA WAS HELD AND PT BECAME MORE CLEAR SHIFT PROGRESSED. AMBULATED IN UNIT AND UP AND DOWN FROM BED TO CHAIR WITH OT. TOLERATED PUREED FOOD AND NECTAR THICK LIQUID, WELL MEDS CRUSHED IN APPLESAUCE. FEEDING TUBE AND TUBE FEEDS DC'D. ZYPREXA WAS CHANGED TO PRN AND PLAN IS TO MINIMIZE SEDATION. BRAN CATHETER WAS DISCONTINUED PRIOR TO AMBULATION AND HE HAD AN INCIDENT OF INCONTINENCE WHEN HE ASKED FOR THE URINAL TO VOID. ATTENDS IN PLACE FOR COMFORT. FAMILY AT BEDSIDE. WILL REPORT TO ONCOMING SHIFT.
--- NOTE | 2019-02-28 19:00 | NUR ---
ASSUMED CARE ASSUMED CARE OF PATIENT. AWAKE AND ALERT. ORIENTED X 3 AND COOPERATIVE AT THIS TIME. AT BEDSIDE. SITTING UP IN BED AND WATCHING TELEVISION. MONITOR SHOWS NSR-ST, RATE MID-90s TO 100s. BP STABLE. REMAINS ON 2.5L NC. RESPIRATIONS EVEN AND UNLABORED AT REST. DENIES C/O SOB OR DYSPNEA. CONTINUE WITH ASPIRATION/DYSPHAGIA PRECAUTIONS. ATTENDS IN PLACE AND URINAL AT BEDSIDE. PICC LINE TO TATIANA. BED ALARM IS ON. SEE SHIFT ASSESSMENT FOR FULL ASSESSMENT.
--- NOTE | 2019-02-28 19:40 | NUR ---
IMPULSIVE/RESTRAINTS PT FOUND CLIMBING OUT OF BED. ASSISTED TO BSC AT THIS TIME. PT CONTINUES TO BE IMPULSIVE AND IS ATTEMPTING TO "GO GET A SMOKE." UNCOOPERATIVE WITH ATTEMPTS TO HELP PT BACK TO BED AND IS CURSING AT STAFF. BEBE VEST ON AT THIS TIME. PRECEDEX RESTARTED AT 1930 AT 0.4MCG/KG/HR. BED ALARM IS ON.
--- NOTE | 2019-02-28 23:00 | NUR ---
AGITATION PT WITH INCREASED AGITATION. ATTEMPTING TO CLIMB OUT OF BED AND IS UNCOOPERATIVE WITH ATTEMPTS TO PROVIDE CARE. BEBE REMAINS ON. PRECEDEX INCREASED FROM 0.2 TO 0.4MCG/KG/HR. BED ALARM IS ON.
--- NOTE | 2019-03-01 01:57 | NUR ---
AGITATION PT ATTEMPTING TO CLIMB OUT OF BED. ORIENTED TO SELF AND TO PLACE, BUT NOT TO TIME OF DAY. CURSING AND YELLING AT STAFF. ALSO GRABBED AND SLAPPED AT STAFF. PT BACK INTO BED WITH ASSIST OF FOUR PEOPLE. BEBE VEST REMAINS ON. MEDICATED WITH FENTANYL 50MCG IV AN ADJUNCT TO SEDATION. PRECEDEX CONTINUES @ 0.4MCG/KG/HR. BED ALARM IS ON.
[2019-03-01 04:47] LABS: BASOPHILS ABSOLUTE AUTO 0.01 K/mm3 (0.00-0.23); BASOPHILS PERCENT AUTO 0 % (0-2); EOSINOPHILS ABSOLUTE AUTO 0.18 K/mm3 (0.00-0.68); EOSINOPHILS PERCENT AUTO 2 % (0-6); Hematocrit 33.7 % (37.0-53.0); Hemoglobin 11.1 g/dL (13.5-17.5); IMMATURE GRAN ABSOLUTE AUTO 0.06 K/mm3 (0.00-0.10); IMMATURE GRAN PERCENT AUTO 1 % (0-1); LYMPHOCYTES ABSOLUTE AUTO 1.42 K/mm3 (0.84-5.20); LYMPHOCYTES PERCENT AUTO 12 % (21-46); MONOCYTES ABSOLUTE AUTO 1.19 K/mm3 (0.16-1.47); MONOCYTES PERCENT AUTO 10 % (4-13); Mean Corpuscular HGB 33.7 pg (26.0-34.0); Mean Corpuscular HGB Conc 32.9 g/dL (31.5-36.5); Mean Corpuscular Volume 102 fL (80-100); Mean Platelet Volume 11.7 fL (9.1-12.4); NEUTROPHILS ABSOLUTE AUTO 8.96 K/mm3 (1.96-9.15); NEUTROPHILS PERCENT AUTO 76 % (41-73); Platelet Count 135 K/mm3 (150-400); RDW Coefficient Variation 17.2 % (11.7-14.2); RDW Standard Deviation 62.7 fL (35.1-46.3); Red Blood Cell Count 3.29 M/mm3 (4.30-5.90); White Blood Cell Count 11.82 K/mm3 (4.00-11.30)
[2019-03-01 05:04] LABS: Alanine Aminotransfer (ALT/SGP 42 U/L (12-78); Albumin, Blood 2.6 g/dL (3.4-5.0); Albumin/Globulin Ratio 0.8 (0.8-1.8); Alk Phos 85 U/L (50-136); Anion Gap 4 mmol/L (6-16); Aspartate Aminotrans (AST/SGOT 33 U/L (12-37); Bilirubin, Total 1.5 mg/dL (0.1-1.0); Blood Urea Nitrogen 22 mg/dL (8-24); Bun/Creatinine Ratio 28.1 (12.0-20.0); CO2, Blood 29 mmol/L (21-32); Calcium, Blood 8.1 mg/dL (8.5-10.1); Chloride, Blood 113 mmol/L (98-108); Creatinine, Blood 0.78 mg/dL (0.60-1.20); Globulin, Blood 3.1 g/dL (2.2-4.0); Glomerular Filtration Rate >60 (60-); Glucose, Blood 72 mg/dL (70-99); Potassium, Blood 3.9 mmol/L (3.5-5.5); Sodium, Blood 146 mmol/L (136-145); Total Protein, Blood 5.7 g/dL (6.4-8.2); Vancomycin, Random 16.2 ug/mL
--- NOTE | 2019-03-01 06:45 | NUR ---
SHIFT SUMMARY PRECEDEX RESTARTED DURING SHIFT. INFUSED BETWEEN 0.2-0.4MCG/KG/HR DURING SHIFT. NOW INFUSING @ 0.2MCG/KG/HR. MOSTLY IRRITABLE AND AGITATED WHEN AWAKE. CURSES AT STAFF AND HAD ONE EPISODE OF SLAPPING AND GRABBING STAFF. MEDICATED WITH FENTANYL 50MCG IV X 2 DURING SHIFT AN ADJUNCT TO SEDATION AND FOR C/O BACK PAIN. ZYPREXA 5MG PO GIVEN X 1 DOSE. INPULSIVE. BEBE VEST REMAINS ON. BED ALARM IS ON. INCONTINENT OF URINE- ATTENDS IN PLACE. MONITOR SHOWS NSR, RATE 80-90s. BP STABLE. 02 INCREASED FROM 2L TO 4L DURING NOC. RESPIRATIONS EVEN AND UNLABORED, BUT SOME SOB NOTED WITH EXERTION. WILL REPORT TO DAY SHIFT RN WHEN AVAILABLE.
--- NOTE | 2019-03-01 07:30 | NUR ---
ASSUMED CARE OF PATIENT; SEE ASSESSMENT CHARTING FOR DETAILED ASSESSMENT. PATIENT SLEEPING AND LYING ON R SIDE; AROUSES EASILY TO VERBAL AND TACTILE STIMULI. ORIENTED TO PLACE, YEAR; UNSURE OF MONTH; ABLE TO FOLLOW DIRECTIONS WHEN CHOOSES BUT CAN BE VERY GRUFF AND REFUSE TO PARTICIPATE ETC AND STARTS TO USE FOUL LANGUAGE. BEBE VEST IN PLACE TO PREVENT PATIENT FROM CLIMBING OOB; PRECEDEX DRIP INFUSING AT AT 0.3MCG/KG/HR AND BED ALARM ON (PATIENT MANAGES TO PULL SELF UP AND MOVES LEGS TO DANGLE POSITION AT FOB. SEVERAL STAFF MEMBERS NEEDED TO HELP GET PATIENT BACK TO BED. MONITOR SHOWS NSR AND VSS. LUNGS COARSE IN UPPER AIRWAYS BUT CLEAR WITH CDB; DIMINISHED T/O POSTERIOR CHEST. OXYGEN AT 3.5L/MIN VIA NC,.
--- NOTE | 2019-03-01 09:30 | NUR ---
DR. RDZTRATE HERE; NO NEW ORDERS; WILL DISCUSS PATIENT WITH DR. OLMOS.
--- NOTE | 2019-03-01 10:00 | NUR ---
DR. OLMOS HERE; AWARE PATIENT BACK ON PRECEDEX DRIP D/T AGITATED MOMENTS AND WILD BEHAVIOR. VEST RESTRAINT IN PLACE. PATIENT PLEASANT TO PHYSICIAN AND SPEECH CLEAR AND OVERALL ORIENTATION WNL.
--- NOTE | 2019-03-01 10:10 | NUR ---
PRECEDEX DRIP INCREASED TO 0.4MCG/KG/HR; PATIENT WITH INCREASED AGITATION. RN ASSISTED PATIENT OOB D/T INSISTING HE MUST HAVE A BOWEL MOVEMENT; VEST UNTIED AND RN DISCONNECTED TUBES; ESCORTED PATIENT TO TOILET; SOMEWHAT WOBBILY AND INSISTENT ON DOING EVERYTHING HIS WAY TO INCLUDE MOVED WALKER AWAY FROM HIMSELF. HAD LARGE BM AND VOIDED AT SAME TIME. REFUSED BATH OR BACK RUB, ETC. RN ASSISTED BACK TO BED AFTER PATIENT WIPED SELF. VEST RE-TIED AND CORDS REATTACHED. AM MEDS. GIVEN ALONG WITH 5MG ZYPREXA.
--- NOTE | 2019-03-01 11:57 | NUR ---
PRECEDEX DRIP DOWN TO 0.3MCG/KG/HR; PATIENT RESTING.
--- NOTE | 2019-03-01 13:25 | NUR ---
PRECEDEX REDUCED TO 0.2MCG/KG/HR; CONT. TO NAP; VSS. TURNS SELF ONTO R SIDE, IN POSITION, WHEN SLEEPS. OXYGEN DOWN TO 2L/MIN NC; BIOX HIGH 90'S.
--- NOTE | 2019-03-01 14:15 | NUR ---
AWAKE AND BED ALARM GOING OFF. PATIENT STATES HE NEEDS TO "TAKE A SHIT" AND FOR RN TO HURRY UP. RN ADVISED THAT CORDS AND VEST NEED TO BE ADJUSTED BEFORE OOB. RN ASSISTED PATIENT TO TOILET AND PREVIOUS WOULD NOT USE WALKER OR FOLLOW COMMANDS; ANGRY AND SAYING RUDE/SNIDE REMARKS TO RN. PATIENT WANTING TO GO OUTSIDE, FOR AWHILE. RN ADVISED THAT THE HEAT/TEMPERATURE OUTDOORS IS AROUND 100. PATIENT STATES HE DOESN'T CARE. PATIENT REMOVED OXYGEN WHILE ON TOILET AND WOULD NOT ALLOW RN TO REPLACE. SPOT CHECK BIOX. READING WAS ABOUT 90-91%.
--- NOTE | 2019-03-01 14:25 | NUR ---
HAD EXTRA NURSING STAFF COME ASSIST RN TO ASSIST. WITH PATIENT. STOOD UP FROM TOILET (NOTE DEPENDS REMOVED D/T HUGE VOID (SATURATED); AND WANDERED OVER TO CUPBOARD WHERE PERSONAL BELONGINGS KEPT; PULLED DOWN BAG AND DROPPED MULTIPLE ITEMS; GRABBED JEANS AND PUT ON. RN ADVISED NEED FOR ANOTHER DEPENDS OR PULLUP D/T INTERMITTENT INCOMTINENCE; CAN PLACE UNDERGARMENT AND THEN PJ'S OVER GARMENT; PATIENT REFUSING. SECURITY PRESENT AND ASKED IF PATIENT ON 2MD HOLD AND RN STATED NO. ADVISED TO CONTACT PHYSICIAN; DONE. DR. OLMOS AND DR. JOSEPH AGREEABLE THAT PATIENT ABLE TO MAKE OWN DECISION AND CAN NOT BE KEPT AGAINST HIS WILL; CAN GO AMA IF INSISTENT. RN TO TURN OFF PRECEDEX (NOTE; PATIENT HAD DISCONNECTED IV TUBING FROM PICC LINE AND HASN'T BEEN RECEIVING PRECEDEX FOR ABOUT 10/MIN. RN DISCONTINUED MED.
--- NOTE | 2019-03-01 14:40 | NUR ---
RN SPOKE TO PATIENTS' SPOUSE ON PHONE (SHE IS AT WORK); EXPLAINED PATIENT PLANNING TO GO HOME AMA; INFORMED HER OF PHYSICIANS' DECISION, ETC. 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
--- NOTE | 2019-03-01 14:45 | NUR ---
PHYSICAL TX. HERE; WALKED PATIENT T/O THE ICU AREA; GAIT BELT WORN; SEE THERAPY NOTES. PATIENT BACK TO ROOM AND SITTING IN RECLINER; RESTRAINT OFF [facility]; PATIENT PUTTING ON HIS SHOES/SOCKS, ETC.
--- NOTE | 2019-03-01 15:10 | NUR ---
JJ COTE RN PULLED PATIENTS' PICC LINE (TATIANA), PER PROTOCOL; DRESSING PLACED. RN WENT OVER FORM (RELEASE FROM RESPONSIBILITY FOR DISCHARGE AGAINST MEDICAL ADVICE; RN AND ANOTHER RN WITNESSED PATIENTS' SIGNATURE.
--- NOTE | 2019-03-01 15:25 | NUR ---
DISCHARGED; PATIENT AMBULATED, WITH DAUGHTER, TO HER VEHICLE. AFTER PATIENT LEFT RN FOUND PATIENTS' CELLPHONE, CARDS, A SOCK, ETC.
--- NOTE | 2019-03-01 16:30 | NUR ---
T/C TO PATIENTS' SPOUSE; INFORMED HER OF PERSONAL BELONGINGS THAT PATIENT OVERLOOKED; SPOUSE WILL P/U BELONGINGS ONCE SHE IS OFF WORK THIS EVENING.
== END 2019-03-01 15:25 | disposition left against medical advice (07) | DRG 871 ==
LOC: ER 08:37 → PCU 10:50 → ICUW 10:50 → PCU 11:19 → ICUW 02-18 02:55
PROVIDERS: Emergency Medicine; Family Medicine; Internal Medicine; Internal Medicine Critical Care Medicine; Pharmacist; ADMIT Internal Medicine
PROC: 02HV33Z Insertion of Infusion Device into Superior Vena Cava, Percutaneous Approach (ICD-10-PCS; principal; 2019-02-25)
PROC: 4A02X4A Measurement of Cardiac Electrical Activity, Guidance, External Approach (ICD-10-PCS; 2019-02-25)
DX: A41.9 Sepsis, unspecified organism (principal); I50.21 Acute systolic (congestive) heart failure; F10.230 Alcohol dependence with withdrawal, uncomplicated; N17.9 Acute kidney failure, unspecified; J44.1 Chronic obstructive pulmonary disease with (acute) exacerbation; G93.40 Encephalopathy, unspecified; J44.0 Chronic obstructive pulmonary disease with (acute) lower respiratory infection; I11.0 Hypertensive heart disease with heart failure; F17.210 Nicotine dependence, cigarettes, uncomplicated; Z78.1 Physical restraint status; J20.9 Acute bronchitis, unspecified
CPT/HCPCS: 36415; 36569; 36600; 51702; 70450; 70486; 71045; 71046; 71250; 74176; 80048; 80053; 80069; 80074; 80202; 81001; 82140; 82803; 82947; 83605; 83735; 83880; 84100; 84145; 84484; 85025; 85651; 85730; 86140; 87040; 87070; 87077; 87086; 87185; 87205; 87486; 87581; 87633; 87798; 92610; 93005; 93010; 94640; 94762; 97116; 97162; 97166; 97530; 99285-25; A9270; C1751; C1894; C8929; C9113; J0692; J1630; J1650; J1885; J1956; J2060; J2405; J2543; J2930; J3010; J3370; J3411; J3475; J7030; J7040; J7042; P9046

== ENCOUNTER → 2019-04-11 | Outpatient (CLI) | payer MEDICARE, OTHER ==
[~2019-04-11] MED LIST changes: +ACET325 PO; +ALBU2.5V5 NEB; +IBUPROFEN200 MG PO
[2019-04-11 21:41] LABS: Alanine Aminotransfer (ALT/SGP 25 U/L (12-78); Albumin, Blood 3.2 g/dL (3.4-5.0); Albumin/Globulin Ratio 0.7 (0.8-1.8); Alk Phos 109 U/L (50-136); Anion Gap 7 mmol/L (6-16); Aspartate Aminotrans (AST/SGOT 22 U/L (12-37); Bilirubin, Total 0.2 mg/dL (0.1-1.0); Blood Urea Nitrogen 30 mg/dL (8-24); Bun/Creatinine Ratio 26.3 (12.0-20.0); CHOL/HDL RATIO 3.3; CO2, Blood 29 mmol/L (21-32); Calcium, Blood 8.4 mg/dL (8.5-10.1); Chloride, Blood 100 mmol/L (98-108); Cholesterol 163 mg/dL (50-200); Creatinine, Blood 1.14 mg/dL (0.60-1.20); Globulin, Blood 4.7 g/dL (2.2-4.0); Glomerular Filtration Rate >60 (60-); Glucose, Blood 144 mg/dL (70-99); HDL Cholesterol 50 mg/dL (>39); LDL/HDL RATIO 1.9; Low Density Lipoprotein Chol 95 mg/dL (0-110); Potassium, Blood 3.9 mmol/L (3.5-5.5); Sodium, Blood 136 mmol/L (136-145); Total Protein, Blood 7.9 g/dL (6.4-8.2); Triglycerides 91 mg/dL (30-160); Very Low Density Lipoprot Chol 18 mg/dL (6-32)
[2019-04-13 16:37] LABS: Free Thyroxine 0.79 ng/dL (0.70-1.60)
[2019-04-13 16:38] LABS: Triiodothyronine, Free 2.43 pg/mL (2.18-3.98)
== END ==
LOC: LAB SHORT 20:18 → LAB 20:18
PROVIDERS: Nurse Practitioner Family
DX: I50.23 Acute on chronic systolic (congestive) heart failure (principal); R60.9 Edema, unspecified; R94.6 Abnormal results of thyroid function studies
CPT/HCPCS: 80053; 80061; 84439; 84443; 84481

== ENCOUNTER → 2020-07-15 | Outpatient (CLI) | payer MEDICARE, OTHER ==
[2020-07-16 13:27] LABS: BASOPHILS ABSOLUTE AUTO 0.09 K/mm3 (0.00-0.23); BASOPHILS PERCENT AUTO 1 % (0-2); EOSINOPHILS PERCENT AUTO 1 % (0-6); Hematocrit 38.4 % (37.0-53.0); IMMATURE GRAN ABSOLUTE AUTO 0.05 K/mm3 (0.00-0.10); IMMATURE GRAN PERCENT AUTO 0 % (0-1); LYMPHOCYTES ABSOLUTE AUTO 2.62 K/mm3 (0.84-5.20); LYMPHOCYTES PERCENT AUTO 20 % (21-46); MONOCYTES ABSOLUTE AUTO 1.03 K/mm3 (0.16-1.47); MONOCYTES PERCENT AUTO 8 % (4-13); Mean Corpuscular HGB 30.8 pg (26.0-34.0); Mean Corpuscular HGB Conc 31.3 g/dL (31.5-36.5); Mean Corpuscular Volume 99 fL (80-100); Mean Platelet Volume 12.8 fL (9.1-12.4); NEUTROPHILS ABSOLUTE AUTO 9.21 K/mm3 (1.96-9.15); NEUTROPHILS PERCENT AUTO 70 % (41-73); Platelet Count 220 K/mm3 (150-400); RDW Coefficient Variation 17.2 % (11.7-14.2); RDW Standard Deviation 61.2 fL (35.1-46.3); Red Blood Cell Count 3.89 M/mm3 (4.30-5.90)
[2020-07-16 14:45] LABS: Albumin, Blood 3.3 g/dL (3.4-5.0); Albumin/Globulin Ratio 0.7 (0.8-1.8); Bilirubin, Total 1.6 mg/dL (0.1-1.0); Bun/Creatinine Ratio 34.7 (12.0-20.0); Calcium, Blood 9.6 mg/dL (8.5-10.1); Creatinine, Blood 1.44 mg/dL (0.60-1.20); Globulin, Blood 4.9 g/dL (2.2-4.0); Potassium, Blood 4.9 mmol/L (3.5-5.5); Total Protein, Blood 8.2 g/dL (6.4-8.2)
== END | disposition home or self-care (01) ==
LOC: LAB 12:38 → LAB SHORT 12:38
PROVIDERS: Nurse Practitioner Family
DX: Z79.01 Long term (current) use of anticoagulants (principal); Z51.81 Encounter for therapeutic drug level monitoring; I50.20 Unspecified systolic (congestive) heart failure; I51.3 Intracardiac thrombosis, not elsewhere classified; E03.9 Hypothyroidism, unspecified; J44.9 Chronic obstructive pulmonary disease, unspecified; R60.0 Localized edema
CPT/HCPCS: 80053; 83880; 84443; 85025